=== PATIENT | female | born 2000 | race Caucasian/White ===

== ENCOUNTER 2023-07-09 09:49 | Outpatient (OUT) | payer BC, SELFPAY ==
[2023-07-09 10:04] LABS: Basophils Percent Auto 0.5 % (0.2-2.0); Eosinophils Absolute Auto 0.1 10^3/uL (0.0-0.7); Eosinophils Percent Auto 1.2 % (0.9-7.0); Hematocrit 40.7 % (36.0-48.0); Hemoglobin 13.2 g/dL (12.0-16.0); Immature Granulocytes Abs Auto 0.01 10^3/uL (0.00-0.03); Immature Granulocytes Pct Auto 0.2 % (0.0-0.5); Lymphocytes Absolute Auto 2.7 10^3/uL (1.2-3.8); Lymphocytes Percent Auto 41.5 % (20.5-60.0); Mean Corpuscular HGB Conc 32.4 g/dL (29.9-35.2); Mean Corpuscular Hemoglobin 28.8 pg (26.7-34.0); Mean Corpuscular Volume 88.7 fL (81.0-99.0); Mean Platelet Volume 10.3 fL (9.5-13.5); Monocytes Absolute Auto 0.3 10^3/uL (0.3-0.8); Monocytes Percent Auto 5.2 % (1.7-12.0); Neutrophils Absolute Auto 3.3 10^3/uL (1.4-6.5); Neutrophils Percent Auto 51.4 % (43.0-75.0); Platelet Count 284 10^3/uL (150-450); Red Blood Count 4.59 10^6/uL (4.20-5.40); White Blood Count 6.5 10^3/uL (4.0-11.0)
[2023-07-09 10:35] LABS: BUN Creatinine Ratio 12.5; Calcium 8.7 mg/dL (8.5-10.1); Carbon Dioxide 25.9 mmol/L (21.0-32.0); Chloride 103 mmol/L (98-107); Estimated GFR (African America >60 (>=60); Estimated GFR (Non-African Ame >60 (>=60); Glucose 97 mg/dL (74-106); Potassium 3.9 mmol/L (3.5-5.1); Sodium 136 mmol/L (136-145); Thyroid Stimulating Hormone 1.503 uIU/mL (0.358-3.740)
[2023-07-10 11:09] LABS: PTH, Intact 36 pg/mL (15-65)
== END 2023-07-09 09:50 | disposition home or self-care (01) ==
LOC: LAB 09:49
PROVIDERS: PCP Family Medicine; Visit Provider Family Medicine
DX: E55.9 Vitamin D deficiency, unspecified (principal); R00.0 Tachycardia, unspecified
CPT/HCPCS: 36415; 80048; 82306; 83970; 84443; 85025

== ENCOUNTER 2023-08-28 06:50 | Outpatient (OUT) | payer BC, SELFPAY ==
[2023-08-28 13:54] LABS: Estimated Average Glucose 100 mg/dL; Free T4 0.97 ng/dL (0.76-1.46); Glycohemoglobin A1C 5.1 % (4.5-6.2)
[2023-08-28 15:35] LABS: Thyroid Stimulating Hormone 2.095 uIU/mL (0.358-3.740)
== END 2023-08-28 06:51 | disposition home or self-care (01) ==
LOC: LAB 06:52
PROVIDERS: PCP Family Medicine
DX: R06.02 Shortness of breath (principal); R94.31 Abnormal electrocardiogram [ECG] [EKG]; R00.2 Palpitations; Z79.899 Other long term (current) drug therapy
CPT/HCPCS: 36415; 83036; 84439; 84443

== ENCOUNTER 2024-02-03 20:26 | Outpatient (REF) | payer BC, SELFPAY ==
[2024-02-07 19:08] LABS: Age Gdln ACOG Testing Note (.); IGP, rfx Aptima HPV ASCU Note (.)
== END 2024-02-03 20:27 | disposition home or self-care (01) ==
LOC: LAB 20:26
PROVIDERS: PCP Family Medicine; Visit Provider Obstetrics & Gynecology
DX: Z01.419 Encounter for gynecological examination (general) (routine) without abnormal findings (principal)
CPT/HCPCS: G0145

== ENCOUNTER 2024-02-18 19:55 | Outpatient (OUT) | payer BC, SELFPAY ==
--- OUTSIDE RECORDS SUMMARY | 2024-02-18 19:58 | XMS_ITS | CCD ---
Author Organization [facility] Care Team Providers Care Mental Health Consultant Name Role Phone REQUEST, DR NONE LISTED Admitting Unavaila ble REQUEST, DR GARDINER LISTED Attending Unavaila neil CAMACHO, DR SHAWNA Leyva Primary Care Unavailable REQUEST, DR GARDINER LISTED Consulting Unavaila neil MCCONNELL, DR MARIA Admitting Unavailable JENNIFER, DR MARIA Attending Unavailable CAMACHO, DR SHAWNA Leyva Primary Care Unavailable JENNIFER, DR MARIA Consulting Unavailable DOUG, DR SHAWNA Leyva Admitting Unavailable CAMACHO, DR SHAWNA Leyva Attending Unavailable DOUG, DR SHAWNA Leyva Primary Care Unavailable DOUG, DR SHAWNA Leyva Consulting Unavailable Shawna Camacho Unavailable Doug, Dr. Shawna Cruz Primary Care Unav ailable Shawna Camacho Unavailable Unavailable Unavailable Shawna Camacho MD Primary Care Provider GLADYS GONSALEZ Referring Unavailable SHAWNA CAMACHO Primary Care UnavailShawna Urban MD Primary Care Provider Unavailable GLADYS GONSALEZ Referring Unavailable SHAWNA CAMACHO Primary Care Unavaila GLADYS Fernandez Referring Unavailable SHAWNA CAMACHO Primary Care Unavaila GLADYS Fernandez Attending Unavailable SHAWNA CAMACHO Primary Care Unavaila ble Unavailable Primary Care Provider UnavailNIKOLAY Camejo Attending Unavailable Medications Current Medications Medication Drug Class(es) Dates Sig (Normalized) Sig (Original) 0.5 ML tirzepatide 5 MG/ML Auto-Injector [Mounjaro] (3 sources) Mounjaro 2.5 MG/0.5ML as directed Subcutaneous weekly for 28 days Active acebutolol 200 mg oral capsule (5 sources) beta-Adrenergic Jose Start: 10-14-2023 End: 10-13-2024 take 1 capsule by mouth twice daily acebutolol (Sectral) 200 mg capsule Indications: Elevated blood pressure reading , Palpitations , Sinus tachycardia Take 1 capsule (200 mg) by mouth 2 times a day. 180 capsule 3 10/14/2023 10/13/2024 Active Start: 08-26-2023 take 1 capsule by mo [facility] once daily Acebutolol HCl - 200 MG Oral Capsule TAKE 1 CAPSULE EVERY 12 HOURS DAILY. Quantity: 180 Refills: 1 Ordered: 26-Aug-2023 Gladys Gonsalez MD Start : 26-Aug-2023 Active [id number] 200 actuat albuterol 0.09 mg/actuat metered dose inhaler (7 sources) beta2-Adrenergic Agonist take 1 puff(s) by inhalation every four hours as needed Albuterol Sulfate HFA 108 (90 Base) MCG/ACT INHALE 1 PUFF EVERY 4 HOURS NEEDED for 30 Active take 1 puff(s) by in halation every four hours albuterol (Proventil HFA) 90 mcg/actuati on inhaler Inhale 1 puff every 4 hours if needed. 0 Active take 1 puff(s) by in halation every four hours as needed Albuterol Sulfate HFA 108 MCG/ACT AERS INHALE 1 PUFF EVERY 4 HOURS NEEDED. Quantity: 0 Refills: 0 Ordered: 26-Aug-2023 DO Active Ethinyl Estradiol / Ferrous fumarate / Norethindrone (3 sources) Estrogen Start: 08-25-2021 Lo Loestrin Fe 1 MG-10 MCG /10 MCG Lo Loestrin Fe( 1 MG-10 MCG /10 MCG Oral ) Active -Hx Entry Oral for [address] Mcconnell *Pick strength-form from [facility] for eRX* Aug, Active loestrin 1.5/30 (21) 1.5-30 mg-mcg tablet (4 sources) Estrogen take 1 tablet by mouth every twenty-four hours Loestrin 1.5/30 (21) 1.5-30 MG-MCG 1 tablet Orally Once a day Active End: 10-14-2023 take 1 tablet by mouth once daily norethindrone ac-eth estradioL (Loestrin 1.5/30, 21,) 1.5-30 mg-mcg tablet tablet Take 1 tablet by mouth once daily. As directed 0 10/14/2023 Discontinued (Therapy completed) take 1 tablet by blaze th once daily norethindrone ac-eth estradioL (Loestrin 1.5/30, 21,) 1.5-30 mg-mcg tablet tablet Take 1 tablet by mouth once daily. As directed 0 Active fluticasone (3 sources) Corticosteroid Start: 02-19-2022 Fluticasone Propionate 50MCG/ACT Fluticasone Propionate( 50MCG/ACT Nasal ) Active -Hx Entry Nasal for 0 *Pick strength-form from [facility] for eRX* Jan, Active loratadine 10 mg oral tablet (3 sources) Start: 02-19-2022 Loratadine 10M G Loratadine( 10MG Oral ) Active -Hx Entry Oral for 0 *Pick strength-form from [facility] for eRX* Jan, Active 24 hr metFORMIN hydrochloride 500 mg extended release oral tablet (10 sources) Biguanide Start: 07-29-2023 take 1 tablet by mouth once daily at mealtime metFORMIN XR (Glucophage-XR) 500 MG 24 hr tablet Indications: Weight loss TAKE 1 TABLET BY MOUTH ONCE EVERY EVENING WITH MEAL 30 tablet 5 07/29/2023 Active Start: 08-11-2021 take 1 tablet by blaze th every twenty-four hours metFORMIN HCl 500 MG 1 tablet with a meal Oral Once a day for 0 days Aug, Active omeprazole 20 mg delayed release oral capsule (8 sources) Proton Pump Inhibitor take 1 capsule by mouth once daily Omeprazole 20 MG TAKE 1 CAPSULE BY MOUTH EVERY DAY for 90 Active spironolactone 25 mg oral tablet (5 sources) Aldosterone Antagonist Start: 08-26-20 23 End: 10-13-20 24 take 1 tablet by mouth once daily spironolactone (Aldactone) 25 mg tablet Indications: Palpitations , Sinus tachycardia , Shortness of breath Take 1 tablet (25 mg) by mouth once daily. 90 tablet 3 10/14/2023 10/13/2024 Active Completed/Discontinued Medications Medication Drug Class(es) Dates Sig (Normalized) Sig (Original) Loestrin 1.5/30 (21) 1.5-30 MG-MCG Oral Tablet (1 source) take 1 tablet by blaze th once daily Loestrin 1.5/30 (21) 1.5-30 MG-MCG Oral Tablet TAKE 1 TABLET DAILY DIRECTED. 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; Translations: [Person consulting for explanation of examination or test findings] Onset: 10-14-2023 10-14-2023 Episodic Asthma (9 sources) Asthma without status asthmaticus; Translations: [Asthma, unspecified, unspecified status] Onset: 04-22-2017 Chronic Cardiac dysrhythmias (19 sources) Tachycardia, unspecified; Translations: [Palpitations] Onset: 10-01-2023 Episodic Contraceptive and procreative management (4 sources) Surveillance of oral contraception done; Translations: [Encounter for surveillance of contraceptive pills] Episodic Immunizations and screening for infectious disease (1 source) Encounter for screening for human papillomavirus (HPV); Translations: [ENC SCREENING HUMAN PAPILLOMAVIRUS] Onset: 01-01-2023 Episodic Malaise and fatigue (13 sources) Other fatigue; Translations: [Fatigue] Onset: 02-19-2022 Episodic Menstrual disorders (12 sources) Secondary amenorrhea; Translations: [Secondary amenorrhea] Onset: 09-03-2016 Chronic Nutritional deficiencies (5 sources) Vitamin D deficiency; Translations: [Vitamin D deficiency, unspecified] Chronic Other aftercare (4 sources) Long-term current use of drug therapy; Translations: [Other long term care pharmacist (current) drug therapy] Episodic Other aftercare (4 sources) Long-term current use of hormonal contraceptive; Translations: [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] Episodic Other aftercare (1 source) Treatment changed; Translations: [Long-term (current) use of other medications] Episodic Other circulatory disease (5 sources) Elevated blood pressure; Translations: [Elevated blood pressure reading without diagnosis of hypertension] Onset: 10-01-2023 10-01-2023 Episodic Other circulatory disease (2 sources) Elevated blood-pressure reading, without diagnosis of hypertension; Translations: [Elevated blood-pressure reading, without diagnosis of hypertension] Onset: 10-01-2023 Episodic Other endocrine disorders (4 sources) Disorder of endocrine system; Translations: [Endocrine disorder, unspecified] Episodic Other lower respiratory disease (9 sources) Dyspnea; Translations: [Shortness of breath] Onset: 10-01-2023 10-02-2023 Episodic Other lower respiratory disease (2 sources) Shortness of breath; Translations: [Shortness of breath] Onset: 10-01-2023 Episodic Other non-traumatic joint disorders (4 sources) Arthralgia of the lower leg; Translations: [Pain in joint, lower leg] Episodic Other nutritional; endocrine; and metabolic disorders (12 sources) Obese class II; Translations: [Body mass index 35.0-35.9, adult] Onset: 07-10-2018 Chronic Other nutritional; endocrine; and metabolic disorders (4 sources) Obesity caused by energy imbalance; Translations: [Other obesity due to excess calories] Chronic Other nutritional; endocrine; and metabolic disorders (4 sources) Obesity; Translations: [Obesity, unspecified] Chronic Other nutritional; endocrine; and metabolic disorders (4 sources) Body mass index 30+ - obesity; Translations: [Body mass index (BMI) 39.0-39.9, adult] Chronic Other nutritional; endocrine; and metabolic disorders (1 source) Other obesity due to excess calories Chronic Other nutritional; endocrine; and metabolic disorders (1 source) Body mass index (BMI) 39.0-39.9, adult Chronic Other nutritional; endocrine; and metabolic disorders (5 sources) Body mass index 40+ - severely obese; Translations: [Morbid obesity] Onset: 10-01-2023 10-01-2023 Chronic Other nutritional; endocrine; and metabolic disorders (2 sources) Morbid (severe) obesity due to excess calories; Translations: [Morbid (severe) obesity due to excess calories (CMS/HCC)] Onset: 10-01-2023 Chronic Other nutritional; endocrine; and metabolic disorders (2 sources) Body mass index (BMI) 40.0-44.9, adult; Translations: [Body mass index (BMI) 40.0-44.9, adult (CMS/HCC)] Onset: 10-01-2023 Chronic Other nutritional; endocrine; and metabolic disorders (4 sources) Abnormal weight gain; Translations: [Abnormal weight gain] Episodic Other screening for suspected conditions (not mental disorders or infectious disease) (16 sources) Encounter for screening for malignant neoplasm of cervix; Translations: [Electrocardiogram abnormal] Onset: 12-31-2022 Episodic Other upper respiratory infections (12 sources) Acute maxillary sinusitis; Translations: [Acute recurrent maxillary sinusitis] Onset: 12-06-2014 Episodic Otitis media and related conditions (8 sources) Non-suppurative otitis media; Translations: [Unspecified nonsuppurative otitis media, bilateral] Onset: 12-05-2018 Episodic Residual codes; unclassified (1 source) Sleep apnea; Translations: [Sleep apnea, unspecified] 10-14-2023 Chronic Residual codes; unclassified (2 sources) Sleep apnea, unspecified; Translations: [Sleep apnea, unspecified] Onset: 10-14-2023 Chronic Residual codes; unclassified (1 source) Obstructive sleep apnea syndrome; Translations: [Obstructive sleep apnea (adult) (pediatric)] Chronic Residual codes; unclassified (1 source) Obstructive sleep apnea (adult) (pediatric) Chronic Residual codes; unclassified (4 sources) Other specified health status; Translations: [Health status] Episodic Unclassified (1 source) Unknown / UNK(Unknown) Onset: 08-08-2017 Past or Other Problems Problem Classification Problem Date Documented Da te Episodic/Chronic Fracture of upper limb (4 sources) Closed fracture of one or more phalanges of hand; Translations: [Closed fracture of unspecified phalanx or phalanges of hand] Onset: 12-23-2013 Episodic Headache, including migraine (1 source) Headache, including migraine Onset: 08-08-2017 Nausea and vomiting (4 sources) Nausea; Translations: [Nausea] Resolved: 08-11-2021 Episodic Other connective tissue disease (4 sources) Pain in finger; Translations: [Pain in unspecified finger(s)] Onset: 12-18-2013 Resolved: 08-11-2021 Episodic Other injuries and conditions due to external causes (4 sources) Motion sickness; Translations: [Motion sickness, initial encounter] Onset: 04-08-2019 Episodic Other non-traumatic joint disorders (4 sources) Shoulder joint pain; Translations: [Pain in right shoulder] Onset: 09-27-2015 Episodic Other skin disorders (4 sources) Disorder of skin and/or subcutaneous tissue; Translations: [Disorder of the skin and subcutaneous tissue, unspecified] Onset: 12-06-2017 Episodic Skin and subcutaneous tissue infections (8 sources) Cellulitis and abscess of upper arm; Translations: [Cellulitis and abscess of upper arm and forearm] Onset: 05-15-2018 Resolved: 08-11-2021 Episodic Unclassified (1 source) Never smoked tobacco; Translations: [Never a smoker] Unclassified (1 source) Patient status finding; Translations: [Patient new to provider] Results Test Name Value Interpretation Reference Range Facility Heart TransthoracicOrdere d By: Phong Walker on 10-03-2023 LV A4C EF 68.5 [facility] Work Phone: [facility] Work Phone: [facility] [address], [place] [address] TRANSTHORACIC ECHOCARDIOGRAM REPORT Patient Name: FER NEELY Reading Physician: [id number] Phong Walker MD Study Date: 10/02/2023 Ordering Provider: [id number] GLADYS GONSALEZ MRN/PID: [id number] Fellow: Nurse: Date of /Age: 10 2000 / 23 years [employer] Hand: Martita Gould RDCS, RVT Gender: F Additional Staff: Height: 167.64 cm Admit Date: Weight: 118.39 kg Admission Status: BSA: 2.24 m2 Department Location: [facility] Blood Pressure: 168 /96 mmHg Study Type: TRANSTHORACIC ECHO (TTE) COMPLETE Diagnosis/ICD: Palpitations-R00.2; Shortness of breath-R06.02; Abnormal electrocardiogram [ECG] [EKG]-R94.31 Indication: Sinus Tachycardia, Morbid Obesity, Elevated BP Reading CPT Codes: Echo Complete w Full [id number] Study Detail: The following Echo studies were performed: 2D, M-Mode, Doppler and color flow. PHYSICIAN INTERPRETATION: Left Ventricle: Left ventricular systolic function is normal, with an estimated ejection fraction of 65%. There are no regional wall motion abnormalities. The left ventricular cavity size is normal. Spectral Doppler shows a normal pattern of left ventricular diastolic filling. Left Atrium: The left atrium is normal in size. Right Ventricle: The right ventricle is normal in size. There is normal right ventricular global systolic function. Right Atrium: The right atrium is normal in size. Aortic Valve: The aortic valve is trileaflet. There is no evidence of aortic valve regurgitation. The peak instantaneous gradient of the aortic valve is 10.9 mmHg. The mean gradient of the aortic valve is 6.0 mmHg. Mitral Valve: The mitral valve is normal in structure. There is no evidence of mitral valve regurgitation. Tricuspid Valve: The tricuspid valve is structurally normal. No evidence of tricuspid regurgitation. Pulmonic Valve: The pulmonic valve is not well visualized. There is no indication of pulmonic valve regurgitation. Pericardium: There is no pericardial effusion noted. Aorta: The aortic root is normal. CONCLUSIONS: 1. Left ventricular systolic function is normal with a 65% estimated ejection fraction. QUANTITATIVE DATA SUMMARY: 2D MEASUREMENTS: Normal Ranges: Ao Root d: 2.30 cm (2.0-3.7cm) LAs: 3.10 cm (2.7-4.0cm) RVIDd: 2.60 cm (0.9-3.6cm) IVSd: 0.90 cm (0.6-1.1cm) LVPWd: 0.80 cm (0.6-1.1cm) LVIDd: 4.30 cm (3.9-5.9cm) LVIDs: 2.70 cm LV Mass Index: 51.0 g/m2 LV % FS 37.2 % LV SYSTOLIC FUNCTION BY 2D PLANIMETRY (MOD): Normal Ranges: EF-A4C View: 68.5 % (>=55%) LV DIASTOLIC FUNCTION: Normal Ranges: MV Peak E: 1.03 m/s (0.7-1.2 m/s) MV Peak A: 0.49 m/s (0.42-0.7 m/s) E/A Ratio: 2.09 (1.0-2.2) MV lateral e' 0.14 m/s MV medial e' 0.11 m/s E/e' Ratio: 7.30 (<8.0) MITRAL VALVE: Normal Ranges: MV Vmax: 1.22 m/s (<=1.3m/s) MV peak P.0 mmHg (<5mmHg) MV mean P.0 mmHg (<48mmHg) AORTIC VALVE: Normal Ranges: AoV Vmax: 1.65 m/s (<=1.7m/s) AoV Peak P.9 mmHg (<20mmHg) AoV Mean P.0 mmHg (1.7-11.5mmHg) LVOT Max Kyle: 0.92 m/s (<=1.1m/s) AoV VTI: 33.90 cm (18-25cm) LVOT VTI: 17.90 cm LVOT Diameter: 2.10 cm (1.8-2.4cm) AoV Area, VTI: 1.83 cm2 (2.5-5.5cm2) AoV Area,Vmax: 1.94 cm2 (2.5-4.5cm2) AoV Dimensionless Index: 0.53 PULMONIC VALVE: Normal Ranges: PV Max Kyle: 1.0 m/s (0.6-0.9m/s) PV Max P.4 mmHg [id number] Walker MD Electronically signed on 10/03/2023 at 9:00:56 AM Final SYNGO Phong Walker MD - 10/03/[address], [address] [place] [address] TRANSTHORACIC ECHOCARDIOGRAM REPORT Patient Name: FER Grover Physician: [id number] Walker MD Study Date: 10/02/2023 Ordering Provider: [id number] GLADYS GONSALEZ MRN/PID: [id number] Fellow: Nurse: Date of /Age: 10 2000 / 23 years [employer] Hand: Martita Gould RDCS, RVT Gender: F Additional Staff: Height: 167.64 cm Admit Date: Weight: 118.39 kg Admission Status: BSA: 2.24 m2 Department Location: [facility] Blood Pressure: 168 /96 mmHg Study Type: TRANSTHORACIC ECHO (TTE) COMPLETE Diagnosis/ICD: Palpitations-R00.2; Shortness of breath-R06.02; Abnormal electrocardiogram [ECG] [EKG]-R94.31 Indication: Sinus Tachycardia, Morbid Obesity, Elevated BP Reading CPT Codes: Echo Complete w Full [id number] Study Detail: The following Echo studies were performed: 2D, M-Mode, Doppler and color flow. PHYSICIAN INTERPRETATION: Left Ventricle: Left ventricular systolic function is normal, with an estimated ejection fraction of 65%. There are no regional wall motion abnormalities. The left ventricular cavity size is normal. Spectral Doppler shows a normal pattern of left ventricular diastolic filling. Left Atrium: The left atrium is normal in size. Right Ventricle: The right ventricle is normal in size. There is normal right ventricular global systolic function. Right Atrium: The right atrium is normal in size. Aortic Valve: The aortic valve is trileaflet. There is no evidence of aortic valve regurgitation. The peak instantaneous gradient of the aortic valve is 10.9 mmHg. The mean gradient of the aortic valve is 6.0 mmHg. Mitral Valve: The mitral valve is normal in structure. There is no evidence of mitral valve regurgitation. Tricuspid Valve: The tricuspid valve is structurally normal. No evidence of tricuspid regurgitation. Pulmonic Valve: The pulmonic valve is not well visualized. There is no indication of pulmonic valve regurgitation. Pericardium: There is no pericardial effusion noted. Aorta: The aortic root is normal. CONCLUSIONS: 1. Left ventricular systolic function is normal with a 65% estimated ejection fraction. QUANTITATIVE DATA SUMMARY: 2D MEASUREMENTS: Normal Ranges: Ao Root d: 2.30 cm (2.0-3.7cm) LAs: 3.10 cm (2.7-4.0cm) RVIDd: 2.60 cm (0.9-3.6cm) IVSd: 0.90 cm (0.6-1.1cm) LVPWd: 0.80 cm (0.6-1.1cm) LVIDd: 4.30 cm (3.9-5.9cm) LVIDs: 2.70 cm LV Mass Index: 51.0 g/m2 LV % FS 37.2 % LV SYSTOLIC FUNCTION BY 2D PLANIMETRY (MOD): Normal Ranges: EF-A4C View: 68.5 % (>=55%) LV DIASTOLIC FUNCTION: Normal Ranges: MV Peak E: 1.03 m/s (0.7-1.2 m/s) MV Peak A: 0.49 m/s (0.42-0.7 m/s) E/A Ratio: 2.09 (1.0-2.2) MV lateral e' 0.14 m/s MV medial e' 0.11 m/s E/e' Ratio: 7.30 (<8.0) MITRAL VALVE: Normal Ranges: MV Vmax: 1.22 m/s (<=1.3m/s) MV peak P.0 mmHg (<5mmHg) MV mean P.0 mmHg (<48mmHg) AORTIC VALVE: Normal Ranges: AoV Vmax: 1.65 m/s (<=1.7m/s) AoV Peak P.9 mmHg (<20mmHg) AoV Mean P.0 mmHg (1.7-11.5mmHg) LVOT Max Kyle: 0.92 m/s (<=1.1m/s) AoV VTI: 33.90 cm (18-25cm) LVOT VTI: 17.90 cm LVOT Diameter: 2.10 cm (1.8-2.4cm) AoV Area, VTI: 1.83 cm2 (2.5-5.5cm2) AoV Area,Vmax: 1.94 cm2 (2.5-4.5cm2) AoV Dimensionless Index: 0.53 PULMONIC VALVE: Normal Ranges: PV Max Kyle: 1.0 m/s (0.6-0.9m/s) PV Max P.4 mmHg [id number] Walker MD Electronically signed on 10/03/2023 at 9:00:56 AM Final [facility] Work Phone: TRANSTHORACIC ECHO (TTE) COM PLETEon 10-02-2023 TRANSTHORACIC ECHO (TTE) COMPLETE [address], [address] [place] [address] TRANSTHORACIC ECHOCARDIOGRAM REPORT Patient Name: FER Grover Physician: [id number] Walker MD Study Date: 10/02/2023 Ordering Provider: [id number] GLADYS GONSALEZ MRN/PID: [id number] Fellow: Nurse: Date of /Age: 10 2000 / 23 years [employer] Hand: Martita Gould RDCS, RVT Gender: F Additional Staff: Height: 167.64 cm Admit Date: Weight: 118.39 kg Admission Status: BSA: 2.24 m2 Department Location: [facility] Blood Pressure: 168 /96 mmHg Study Type: TRANSTHORACIC ECHO (TTE) COMPLETE Diagnosis/ICD: Palpitations-R00.2; Shortness of breath-R06.02; Abnormal electrocardiogram [ECG] [EKG]-R94.31 Indication: Sinus Tachycardia, Morbid Obesity, Elevated BP Reading CPT Codes: Echo Complete w Full Doppler-[id number] Study Detail: The following Echo studies were performed: 2D, M-Mode, Doppler and color flow. PHYSICIAN INTERPRETATION: Left Ventricle: Left ventricular systolic function is normal, with an estimated ejection fraction of 65%. There are no regional wall motion abnormalities. The left ventricular cavity size is normal. Spectral Doppler shows a normal pattern of left ventricular diastolic filling. Left Atrium: The left atrium is normal in size. Right Ventricle: The right ventricle is normal in size. There is normal right ventricular global systolic function. Right Atrium: The right atrium is normal in size. Aortic Valve: The aortic valve is trileaflet. There is no evidence of aortic valve regurgitation. The peak instantaneous gradient of the aortic valve is 10.9 mmHg. The mean gradient of the aortic valve is 6.0 mmHg. Mitral Valve: The mitral valve is normal in structure. There is no evidence of mitral valve regurgitation. Tricuspid Valve: The tricuspid valve is structurally normal. No evidence of tricuspid regurgitation. Pulmonic Valve: The pulmonic valve is not well visualized. There is no indication of pulmonic valve regurgitation. Pericardium: There is no pericardial effusion noted. Aorta: The aortic root is normal. CONCLUSIONS: 1. Left ventricular systolic function is normal with a 65% estimated ejection fraction. QUANTITATIVE DATA SUMMARY: 2D MEASUREMENTS: Normal Ranges: Ao Root d: 2.30 cm (2.0-3.7cm) LAs: 3.10 cm (2.7-4.0cm) RVIDd: 2.60 cm (0.9-3.6cm) IVSd: 0.90 cm (0.6-1.1cm) LVPWd: 0.80 cm (0.6-1.1cm) LVIDd: 4.30 cm (3.9-5.9cm) LVIDs: 2.70 cm LV Mass Index: 51.0 g/m2 LV % FS 37.2 % LV SYSTOLIC FUNCTION BY 2D PLANIMETRY (MOD): Normal Ranges: EF-A4C View: 68.5 % (>=55%) LV DIASTOLIC FUNCTION: Normal Ranges: MV Peak E: 1.03 m/s (0.7-1.2 m/s) MV Peak A: 0.49 m/s (0.42-0.7 m/s) E/A Ratio: 2.09 (1.0-2.2) MV lateral e' 0.14 m/s MV medial e' 0.11 m/s E/e' Ratio: 7.30 (<8.0) MITRAL VALVE: Normal Ranges: MV Vmax: 1.22 m/s (<=1.3m/s) MV peak P.0 mmHg (<5mmHg) MV mean P.0 mmHg (<48mmHg) AORTIC VALVE: Normal Ranges: AoV Vmax: 1.65 m/s (<=1.7m/s) AoV Peak P.9 mmHg (<20mmHg) AoV Mean P.0 mmHg (1.7-11.5mmHg) LVOT Max Kyle: 0.92 m/s (<=1.1m/s) AoV VTI: 33.90 cm (18-25cm) LVOT VTI: 17.90 cm LVOT Diameter: 2.10 cm (1.8-2.4cm) AoV Area, VTI: 1.83 cm2 (2.5-5.5cm2) AoV Area,Vmax: 1.94 cm2 (2.5-4.5cm2) AoV Dimensionless Index: 0.53 PULMONIC VALVE: Normal Ranges: PV Max Kyle: 1.0 m/s (0.6-0.9m/s) PV Max P.4 mmHg [id number] Phong Walker MD Electronically signed on 10/03/2023 at 9:00:56 AM Final [facility] Tobacco Screening.on 023 Adult depression screening assessment No [facility] [employer] DO Work Phone: Fall risk assessment a) No falls within the last year [facility] [employer] 250 DO Work Phone: Tobacco use status [facility] b) No -[facility] greer 250 DO Work Phone: PAP ACOG PANEL 2: 21 to 29on 01-05-2023 . . Normal [facility] Comment on above: Performed By: #### [id number] #### [facility] [address] [place] [address] Dr. Andrews Zepeda Age Gdln ACOG Testing - Normal [facility] Comment on above: Performed By: #### [id number] #### [facility] [address] [place] [address] [address] Andrews Zepeda DIAGNOSIS: Comment [facility] Comment on above: Result Comment: NEGA TIVE FOR INTRAEPITHELIAL LESION OR MALIGNANCY. Performed By: #### [id number] #### [facility] [address] [place] [address] Dr. Andrews Zepeda Methodology: Comment [facility] Comment on above: Result Comment: This liquid based ThinPrep(R) pap test was screened with the use of an image guided system. Performed By: #### [id number] #### [facility] [address] [place] [address] Dr. Andrews Zepeda Note: Comment [facility] [facility] Comment on above: Result Comment: The Pap smear is a screening test designed to aid in the detection of premalignant and malignant conditions of the uterine cervix. It is not a diagnostic procedure and should not be used as the sole means of detecting cervical cancer. Both false-positive and false-negative reports do occur. . Performed By: #### [id number] #### [facility] [address] [place] [address] Dr. Andrews Zepeda Performed by: Comment [facility] Comment on above: Result Comment: Waylon Raza, Operations Director (ASCP) Performed By: #### [id number] #### [facility] [address] [place] [address] Dr.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 JLSCElimination/Toileting NPain 4Position Comfortable YSafe Environment YFall Risk Change N008/08/2017 18:32 Patient Interaction - Call lightplaced within reach. 08/08/2017 18:33 JLSC08/08/2017 18:32 Patient Interaction - Introduce selfto Patient. 08/08/2017 18:33 JLSC08/08/2017 18:32 Patient Interaction - Name Band on Pt08/08/2017 18:33 JLSC08/08/2017 18:32 Primary DOC Guide - A. 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 [facility] MEDICAL REC #: [id number], [place] [address] DEPARTMENT CHART EMERGENCY DEPARTMENT PHYSICIANTravel History - Traveled outside of the [facility] in thelast 30 days NoTravel History - Had contact with a person who hastraveled outside the state in the last 30 days No08/08/2017 18:32 Primary DOC Guide - B. Fall RiskAssessment (Age andlt;65) 08/08/2017 18:33 JLSCHistory of Falling in last 3 months? Yes (1)Confusion or Disorientation? No (0)Intoxicated or Sedated? No (0)Impaired Gait? No (0)Mobility Assist Device Used? No (0)Altered Elimination? No (0)Fall Risk Score 1-2 Points = Low Risk. 3-4 Points =Moderate Risk. 5 or more points = High Risk. 1Fall Score Greater andgt;= 3? No08/08/2017 18:33 Primary DOC Guide - D. PsychosocialAssessment 08/08/2017 18:33 JLSCOver the Last 2 weeks, how often have you had littleinterest or pleasure in doing things (0) Not at AllIs Psychosocial Assessment Score 3 or more? If score is3 or more please consult ED Navigator! NoTotal Psychosocial Assessment Score 0Over the last 2 weeks, how often have you been feelingdown, depressed or hopeless (0) Not at All08/08/2017 18:33 Primary DOC Guide - E. Family ViolenceAssessment 08/08/2017 18:33 JLSCWithin the past year, has anyone ever pushed, shoved,slapped, choked, hit, punched or kicked you: NoWithin the past year, has anyone ever pressured orforced you to have sexual activities when you did not wantto: NoDo you feel safe and well cared for: YesIs there a partner from a previous or currentrelationship that is making you feel unsafe now: No08/08/2017 19:51 Hourly Rounding - Rounding 08/08/201719:51 CNHElimination/Toileting NPain 5Position Comfortable YSafe Environment YAssessment Note pt resting in bed with family atbedside, bed in low and locked position, denies needs [facility] PATIENT NAME: FER NEELY E[address] [facility] [address] MEDICAL REC #: [id number], [place] [address] DEPARTMENT CHART EMERGENCY DEPARTMENT VYHYGWBLU24/07/2017 20:28 Admit/Discharge - *Dischargeinstructions/te sts andamp; procedures/med list reviewed andprovided; prescriptions given to patient 08/08/2017 20:49AGQ0608/08/2017 20:28 Admit/Discharge - Ambulated withsteady gait home 08/08/2017 20:29 [facility] ME DICATIONS I V I AND O VITALS=== VS-ROUTI NE Time: 08/08/2017 17:13B/P: 144/67 - Right Upper Arm - Sitting - MachinePulse: 104 - Monitor Resp: 18Sa02: 99 Room Air Temp: 98.60 F - Oral08/08/2017 17:14 AGVS-Pain Time: 08/08/2017 17:13 Pain Level: 6008/08/2017 17:14 AGVS-GCS Time: 08/08/2017 17:13 Visual: 4 Verbal: 5 Motor:6 GCS Total: 15 08/08/2017 17:14 AGVS-HT/WT Time: 08/08/2017 17:13 Ht: 66 in. ActualWeight: 225 lbs Actual 08/08/2017 17:14 AGVS-Visual Time: 08/08/2017 17:13 08/08/2017 17:14 AGVS-FHT Time: 08/08/2017 17:13 08/08/2017 17:14AGVS-Notes Time: 08/08/2017 17:13 map 97 08/08/201717:14 AGVS-ROUTINE Time: 08/08/2017 19:50B/P: 137/63 - Right Upper Arm - Sitting - MachinePulse: 101 - Monitor Resp: 16Sa02: 100 Room Air 08/08/2017 19:51 CNHVS-Pain Time: 08/08/2017 19:50 Pain Level: 19:51 CNHVS-GCS Time: 08/08/2017 19:50 Visual: 4 Verbal: 5 Motor: [facility] PATIENT NAME: FER NEELY [id number] [facility] [address] [facility] MEDICAL REC #: [id number], [place] [address] DEPARTMENT CHART EMERGENCY DEPARTMENT PHYSICIAN6 GCS Total: 15 08/08/2017 19:51 CNHVS-HT/WT Time: 08/08/2017 19:50 08/08/2017 19:51 CNHVS-Visual Time: 08/08/2017 19:50 08/08/2017 19:51 CNHVS-FHT Time: 08/08/2017 19:50 08/08/2017 19:51CNHVS-Notes Time: 08/08/2017 19:50 map 91 08/08/201719:51 [facility] OR DERS D ischarge patient 08/08/2017 20:15N/AOrdered: 08/08/2017 19:41 By . OtherReviewed: 08/08/2017 20:15 By . OtherCT head/brain w/o con 08/08/2017 19:16N/AOrdered: 08/08/2017 18:16 By Raheem LockCompleted Time: 08/08/2017 19:16 By Raheem LockIndication: head injuryNoted Time: 08/08/2017 19:13Question: Are you or think you might be ?Answer: NO DIS CHARGE =Diagnosis: acute postconcussive syndrome 08/08/201719:42Dispositio n: Time: 08/08/2017 19:41Discharge Time: 08/08/2017 20:29Type: DischargeCondition: Stable for admission/discharge/trans ferafter emergency evaluation/treatment Category: *NOTAPPLICABLEReferral: 08/08/2017 19:42Admit Physician: . Other PRESCRIPTIONS ===CHARGES ===== [facility] PATIENT NAME: TODDNargisFER [address]ie MEDICAL REC #: [id number], [place] [address] DEPARTMENT CHART EMERGENCY DEPARTMENT PHYSICIAN ====SIGNATURE ========BENJIE CRAWFORDHOTTO CANNON RN [facility] PATIENT NAME: SANDIEFER Dr. MEDICAL REC #: [id number], [place] [address] DEPARTMENT CHART EMERGENCY DEPARTMENT PHYSICIAN [facility] ED Documentation This is a preliminar y report only, as the practitioner review and authentication has not occurred. [facility] Vital Signs Date Time Vital Sign Value Performing Clinician Facility 01-02-2024 15:45-0500 Body height 168.91 cm Shawna Camacho Other [facility] Other 01-02-2024 15:45-0500 Body mass index (BMI) [Ratio] 38.76 kg/m2 Shawna Camacho Other [facility] Other 01-02-2024 15:45-0500 Body weight 110.59 kg Shawna Camacho Other [facility] Other 01-02-2024 15:45-0500 Diastolic blood pressure 78 mm[Hg] Shawna Camacho Other [facility] Other 01-02-2024 15:45-0500 Systolic blood pressure 110 mm[Hg] Shawna Camacho Other [facility] Other 10-14-2023 15:08-0500 Body height 167.6 cm Gladys Gonsalez MD Work Phone: [facility] 10-14-2023 15:08-0500 Body mass index (BMI) [Ratio] 42.29 kg/m2 Gladys Gonsalez MD Work Phone: [facility] 10-14-2023 15:08-0500 Body weight 118.84 kg Gladys Gonsalez MD Work Phone: [facility] 10-14-2023 15:08-0500 Diastolic blood pressure 78 mm[Hg] Gladys Gonsalez MD Work Phone: [facility] 10-14-2023 15:08-0500 Heart rate 94 /min Gladys Gonsalez MD Work Phone: [facility] 10-14-2023 15:08-0500 Systolic blood pressure 130 mm[Hg] Gladys Gonsalez MD Work Phone: [facility] 10-02-2023 07:42-0400 Body height 167.[address] 10-02-2023 07:42-0400 Body mass index (BMI) [Ratio] 42.13 kg/m2 [address] 10-02-2023 07:42-0400 Body weight 118.[address] 10-02-2023 07:42-0400 Diastolic blood pressure 96 mm[Hg] [address] 10-02-2023 07:42-0400 Systolic blood pressure 168 mm[Hg] [address] 08-26-2023 16:17-0400 Diastolic blood pressure 88 mm[Hg] Shawna Camacho Work Phone: [facility] DO Work Phone: 08-26-2023 16:17-0400 Systolic blood pressure 166 mm[Hg] Shawna Camacho Work Phone: [facility] DO Work Phone: 08-26-2023 15:34-0400 Diastolic blood pressure 100 mm[Hg] Shawna Camacho Work Phone: [facility] DO Work Phone: 08-26-2023 15:34-0400 Heart rate 120 /min Shawna Camacho Work Phone: [facility] DO Work Phone: 08-26-2023 15:34-0400 Systolic blood pressure 172 mm[Hg] Shawna Camacho Work Phone: [facility] DO Work Phone: 08-26-2023 15:29-0400 Body height 167.64 cm Shawna Camacho Work Phone: [facility] DO Work Phone: 08-26-2023 15:29-0400 Body mass index (BMI) [Ratio] 42.13 kg/m2 Shawna Camacho Work Phone: [facility] DO Work Phone: 08-26-2023 15:29-0400 Body surface area Derived from formula 2.24 m2 Shawna Camacho Work Phone: [facility] DO Work Phone: 08-26-2023 15:29-0400 Body weight 118.39 kg Shawna Camacho Work Phone: [facility] DO Work Phone: 08-26-2023 15:29-0400 Diastolic blood pressure 94 mm[Hg] Shawna Camacho Work Phone: [facility] DO Work Phone: 08-26-2023 15:29-0400 Heart rate 120 /min Shawna Camacho Work Phone: [facility] DO Work Phone: 08-26-2023 15:29-0400 Systolic blood pressure 160 mm[Hg] Shawna Camacho Work Phone: [facility] DO Work Phone: 07-09-2023 08:45-0400 Body height 168.91 cm Shawna Camacho Other [facility] Other 07-09-2023 08:45-0400 Body mass index (BMI) [Ratio] 39.11 kg/m2 Shawna Camacho Other [facility] Other 07-09-2023 08:45-0400 Body weight 111.59 kg Shawna Doug Other [facility] Other 07-09-2023 08:45-0400 Diastolic blood pressure 82 mm[Hg] Shawna Doug Other [facility] Other 07-09-2023 08:45-0400 SaO2% (BldA) [Mass fraction] 98 % Shawna Doug Other [facility] Other 07-09-2023 08:45-0400 Systolic blood pressure 134 mm[Hg] Shawna Camacho Other [facility] Other Encounters Encounter Date Encounter Type Care Provider Facility Start: 02-03-2024 End: 02-03-2024 ambulatory NIKOLAY MCCONNELL Not Available Start: 01-13-2024 Chart abstracting Nikolay Mcconnell DO Work Phone: [facility] Start: 01-02-2024 End: 01-02-2024 ambulatory Shawna Camacho Other [facility] Other Start: 01-02-2024 Office outpatient vi sit 15 minutes Shawna Camacho [facility] Start: 11-07-2023 End: 11-07-2023 ambulatory Shawna Camacho Other [facility] Other Start: 11-07-2023 Telephone encounter Shawna Camacho [facility] Start: 10-14-2023 End: 10-14-2023 ambulatory [facility] Ambulatory Start: 10-14-2023 End: 10-14-2023 Office outpatient visit 15 minutes Gladys Gonsalez MD Work Phone: [facility] Comment on above: Palpitations (Primar y Dx); Encounter to discuss test results; Abnormal EKG; Elevated blood pressure reading; Sinus tachycardia; Morbid obesity with BMI of 40.0-44.9, adult (CMS/HCC); Shortness of breath; Tiredness; Sleep apnea, unspecified type Start: 10-02-2023 End: 10-02-2023 ambulatory [facility] Ambulatory Start: 10-02-2023 End: 10-03-2023 ambulatory [facility] Start: 10-02-2023 End: 10-02-2023 Subsequent hospital visit by physician Jessica Capone Echo/Vasc Room 2 [facility] Comment on above: Palpitations; Shortness of breath; Abnormal EKG Start: 08-26-2023 Office consultation new/estab patient 60 min Shawna Camacho Work Phone: [facility] DO Work Phone: Start: 07-10-[address] Shawna Camacho Facility:[facility] Start: 07-09-2023 End: 07-09-2023 ambulatory Shawna Camacho Other [facility] Other Start: 07-09-2023 Office outpatient vi sit 25 minutes Shawna Camacho [facility] Start: 07-09-2023 Telephone encounter Shawna Camacho [facility] Start: 12-31-2022 End: 12-31-[address] NIKOLAY MCCONNELL Facility: Start: 12-06-2022 End: 12-07-[address] GARDINER LISTED REQUEST Facility: Start: 02-19-2022 End: 02-20-[address] SHAWNA CAMACHO Facility: Start: 02-19-2022 Gynecological examination normal Shawna Camacho Other [facility] Other Start: 02-19-2022 Well child visit Shawna Camacho Other [facility] Other Start: 08-08-2017 Emergency department patient visit Facility:[facility] Procedures Date Procedure Procedure Detail Performing Clinician Start: 10-14-2023 HOME SLEEP APNEA DAVIS T (HSAT) GLADYS GONSALEZ Start: 10-02-2023 HOLTER OR EVENT CARD IAC MONITOR GLADYS GONSALEZ Start: 10-02-2023 TRANSTHORACIC ECHO ( TTE) COMPLETE GLADYS GONSALEZ Start: 10-02-2023 Echo tthrc r-t 2d w/wom-mode compl spec&colr d Gladys Gonsalez MD Work Phone: Start: 04-02-2019 General examination of patient Shawna Camacho Other Extraction of wisdom tooth Shawna Camacho Work Phone: Operative procedure on foot Shawna Camacho Work Phone: NEGATED: Highlighted row has not occurred! Total colonoscopy Shawna Camacho Work Phone: Plan of Treatment Date Care Activity Detail Author Start: 2048 Zoster Vaccines (1 of 2) Zoste r Vaccines (1 of 2) [facility] Start: 03-05-2029 DTaP/Tdap/Td Vaccine s (8 - Td or Tdap) DTaP/Tdap/Td Vaccines (8 - Td or Tdap) [facility] Start: 04-13-2024 End: 04-13-2024 Patient encounter procedure 04/13/2024 3:30 PM EDT Office Visit [address] [id number] Gladys Gonsalez MD [address] [place] [address] [address] [place], [place] [id number] [facility] Start: 02-03-2024 End: 02-03-2024 Patient encounter procedure 02/03/2024 4:00 PM EST Office Visit [facility] [address] [place] [address] Nikolay Mcconnell, [address] [place]ilar, [place] [id number] [facility] Start: 10-14-2023 End: 10-14-2023 Patient encounter procedure 10/14/2023 3:00 PM EST Office Visit [address] [address] Gladys Gonsalez MD [address] [place] [address] [address] [place] [address] [facility] Start: 01-04-2023 COVID-19 Vaccine (4 - Moderna series) COVID-19 Vaccine (4 - Moderna series) [facility] Start: 02-17-2022 HPV Vaccines (3 - 3- dose series) HPV Vaccines (3 - 3-dose series) [facility] Start: 2019 Screening for malign ant neoplasm of cervix [facility] Start: 2016 Diabetes mellitus screening Diabetes Screening [facility] Start: 2016 Hepatitis C screening Hepatitis C Sc reening [facility] Start: 11-08-2009 Varicella vaccination Varicell a Vaccines (1 of 2 - 2-dose childhood series) [facility] Start: 1998 HIV screening HIV Screening [facility] Start: 1998 Lipid panel Lipid Panel [facility] Start: 1998 Yearly Adult Physical Yearly Adult P [facility] Home sleep apnea davis t (HSAT) Home sleep apnea test (HSAT) Sleep Center Routine Shortness of breath Tiredness Sleep apnea, unspecified type Ordered: 10/14/2023 [facility] Service Area Work Phone: Comment on above: Ordered: 10/14/2023 End: 10-02-2023 US Heart Transthoracic [facility] Service Area Work Phone: Comment on above: Once for 1 Occurrenc es starting 10/02/2023 until 10/02/2023 Immunizations Immunization Date Immunization Notes Care Provider Fa chaparrita 09-02-2023 influenza, injectabl e, quadrivalent, preservative free Jessica 2 [facility] Work Phone: 11-09-2022 Pfizer COVID-19 Vac Bivalent 30 MCG/0.3ML Intramuscular Suspension Shawna Camacho Work Phone: [facility] DO Work Phone: 09-19-2022 Influenza, injectabl e, Madin Misti Canine Kidney, preservative free, quadrivalent Shawna E Camacho Work Phone: [facility] 250 DO Work Phone: 10-06-2021 Human Papillomavirus 9-valent vaccine Shawna E Camacho Work Phone: [facility] 250 DO Work Phone: 10-06-2021 HPV, unspecified formulation [address] Work Phone: 09-29-2021 Moderna COVID-19 Vac cine 100 MCG/0.5ML Intramuscular Suspension Shawna E Camacho Work Phone: [facility] 250 DO Work Phone: 08-20-2021 Human Papillomavirus 9-valent vaccine Shawna E Camacho Work Phone: [place] [address] DO Work Phone: 08-20-2021 influenza, injectabl e, quadrivalent, preservative free Shawna E Camacho Work Phone: [place] [address] DO Work Phone: 03-23-2021 Moderna COVID-19 Vac cine 100 MCG/0.5ML Intramuscular Suspension Shawna E Camacho Work Phone: [facility] 250 DO Work Phone: 02-22-2021 Moderna COVID-19 Vac cine 100 MCG/0.5ML Intramuscular Suspension Shawna E Camacho Work Phone: [facility] 250 DO Work Phone: 07-21-2019 influenza, injectabl e, quadrivalent, preservative free Shawna E Camacho Work Phone: [facility] 250 DO Work Phone: 03-05-2019 diphtheria, tetanus toxoids and acellular pertussis vaccine, unspecified formulation Shawna Camacho Other [facility] Other 03-05-2019 hepatitis A vaccine, adult dosage Shawna Autumn [place] Work Phone: [facility] [employer] DO Work Phone: 03-05-2019 tetanus toxoid, redu kyle diphtheria toxoid, and acellular pertussis vaccine, adsorbed Shawnaedmond Camacho Work Phone: [facility] [employer] DO Work Phone: 07-22-2018 influenza virus vacc ine, split virus (incl. purified surface antigen) Shawna Doug Other [facility] Other 07-22-2018 influenza, injectabl e, quadrivalent, preservative free Shawna Camacho Work Phone: [facility] [employer] DO Work Phone: 09-01-2017 influenza, injectabl e, quadrivalent, preservative free Shawna Autumn Camacho Work Phone: [facility] [employer] DO Work Phone: 07-19-2016 meningococcal oligosaccharide (groups A, C, Y and W-135) diphtheria toxoid conjugate vaccine (MCV4O) Shawna Camacho Other [facility] Other 07-19-2016 meningococcal polysaccharide (groups A, C, Y and W-135) diphtheria toxoid conjugate vaccine (MCV4P) Shawna Camacho Work Phone: [facility] [employer] DO Work Phone: 06-20-2016 hepatitis A vaccine, adult dosage Shawna Doug Other [facility] Other 08-07-2015 influenza, injectabl e, quadrivalent, preservative free Shawna Camacho Work Phone: [facility] [employer] DO Work Phone: 09-13-2014 tetanus and diphther ia toxoids, adsorbed, preservative free, for adult use (5 Lf of tetanus toxoid and 2 Lf of diphtheria toxoid) Shawna Camacho Other [facility] [employer] Other 11-20-2011 influenza, seasonal, injectable Shawna Camacho Work Phone: [facility] [employer] DO Work Phone: 06-19-2011 tetanus toxoid, redu kyle diphtheria toxoid, and acellular pertussis vaccine, adsorbed Shawna Camacho [facility] Work Phone: 10-11-2009 novel influenza-H1N1 -09, preservative-free, injectable Shawna Camacho Work Phone: [facility] Work Phone: 05-29-2004 diphtheria, tetanus toxoids and acellular pertussis vaccine, unspecified formulation Shawna Camacho Work Phone: [facility] [employer] DO Work Phone: 05-29-2004 measles, mumps and rubella virus vaccine Shawna Camacho Work Phone: [facility] Work Phone: 05-29-2004 poliovirus vaccine, inactivated Shawna Camacho Work Phone: [facility] Work Phone: 12-05-1999 diphtheria, tetanus toxoids and acellular pertussis vaccine, unspecified formulation Shawna Camacho Work Phone: [facility] DO Work Phone: 12-05-1999 haemophilus influenz ae type b vaccine, HbOC conjugate Shawna Camacho Work Phone: [facility] DO Work Phone: 12-05-1999 measles, mumps and rubella virus vaccine Shawna Camacho Work Phone: [place] [address] DO Work Phone: 12-05-1999 trivalent poliovirus vaccine, live, oral Shawna Camacho Work Phone: [place] [address] DO Work Phone: 05-31-1999 diphtheria, tetanus toxoids and acellular pertussis vaccine, unspecified formulation Shawna Leyva Camacho Work Phone: [place] [address] DO Work Phone: 05-31-1999 haemophilus influenz ae type b conjugate and Hepatitis B vaccine Shawna Leyva Camacho Work Phone: [place] [address] DO Work Phone: 03-01-1999 diphtheria, tetanus toxoids and acellular pertussis vaccine, unspecified formulation Shawna Leyva Camacho Work Phone: [place] [address] DO Work Phone: 03-01-1999 haemophilus influenz ae type b vaccine, HbOC conjugate Shawna Leyva Camacho Work Phone: [place] [address] DO Work Phone: 03-01-1999 poliovirus vaccine, inactivated Shawna E Camacho Work Phone: [place] [address] DO Work Phone: 1998 diphtheria, tetanus toxoids and acellular pertussis vaccine, unspecified formulation Shawna E Camacho Work Phone: [place] [address] DO Work Phone: 1998 haemophilus influenz ae type b conjugate and Hepatitis B vaccine Shawna E Camacho Work Phone: [place] [address] DO Work Phone: 2000 poliovirus vaccine, inactivated Shawna E Camacho Work Phone: [facility] [employer] 250 DO Work Phone: 2000 hepatitis B vaccine, pediatric or pediatric/adolescent dosage Shawna Camacho Work Phone: [facility] [employer] 250 DO Work Phone: 2000 hepatitis B vaccine, pediatric or pediatric/adolescent dosage Shawna Camacho Work Phone: [facility] [employer] 250 DO Work Phone: Payers Date Payer Category Payer Unknown 2015 Private Health Insurance [id number] 1998 Unknown [id number] 2.16.84 [id number] 1998 Unknown [id number] 2.16.84 [id number] 1998 Unknown [id number] 2.16. [id number] 1998 Unknown [id number] 2.16.84 [id number] 1998 Unknown [id number] 2.16.8 [id number] 1998 Unknown [id number] 2.16.8 [id number] 1998 Unknown [id number] 2.16.8 [id number] 1998 Unknown [id number] 2.16.84 [id number] 1959 Self-pay 1961 Unknown [id number] Unknown [id number] 2.16.84 [id number] Social History Date Type Detail Facility Unknown if ever smoked [facility] Other Start: 10-14-2023 End: 01-13-2024 [facility] Assigned At [facility] [employer] Other Start: 10-14-2023 End: 01-13-2024 No illicit drug use No illicit drug use -[facility] 250 DO Work Phone: Tobacco smoking status NHIS Tobacco smoking consumption unknown [facility] Work Phone: Start: 2000 [facility] Start: 09-22-2023 End: 10-14-2023 Exposure to SARS-CoV-2 (event) Not sure [facility] Start: 10-14-2023 End: 01-13-2024 Tobacco smoking status NHIS Never smoked tobacco [facility] Start: 10-14-2023 Tobacco use and exposure Smokeless tobacco non-user [facility] Work Phone: Start: 10-14-2023 Alcohol intake Lifetime non-d magdalena (finding) [facility] Work Phone: Start: 01-13-2024 Alcohol intake Current drinke r of alcohol (finding) [facility] Start: 01-13-2024 Alcohol Comment caffeine: 2-3 cups per day [facility] Clinical Notes 07-09-2023 to 01-02-2024 Note Date & Type Note Facility 01-02-2024 Evaluation note Encounter Date Diagnosis Assessment Notes Jan, LOIDA (obstruct marcelina sleep apnea) (ICD-10 - G47.33) 1 diagnostic sleep study faxed to [facility] patient requested follow-up there. Reports from home sleep study printed and included with the referral as she began treatment with [facility] where her heel pricker is based out of. [facility] Other [id number] History of Present illness Narrative* Gladys Gonsalez MD - 10/14/2023 3:00 PM EST Most recently seen August 26, 2023. Presents for follow-up after medication adjustments, Holter monitor, and blood work. Subjective : She complains of fatigue which she attributes to the acebutolol, however palpitations have improvedconsiderably. She is accompanied by her. Reviewed test results History so Far : 1. Palpitations 2. Shortness of breath 3. Fatigue 4. Hypertensive, without prior diagnosis of hypertension 5. Irregular menstrual cycles 6. Patient has been on high risk medication Adipex on and off. 7. She has tried diligently multiple methods such as intermittent fasting regular aerobic activity as much as tolerated, reducing calorie consumption, but has not been able to lose weight in any significant form. 8. Agents like Mounjaro and Ozempic are not covered by her insurance. 9. October 2023-LVEF 65%, normal chamber dimensions, LV end-systolic diameter 2.7 cm, grossly normal valves, PA pressure not estimated. 10. Holter monitor October 2023-predominant rhythm sinus, no malignant dysrhythmia identified. Patient had several symptoms during monitoring. Objective Wt Readings from Last 3 Encounters: 10/14/23 119 kg (262 lb) 10/02/23 118 kg (261 lb) Physical Exam: GENERAL APPEARANCE: in no acute distress. CHEST: Symmetric and non-tender. INTEGUMENT: Skin warm and dry HEENT: No gross abnormalities identified.No pallor or scleral icterus. NECK: Supple, no JVD, no bruit. NEURO/PSHCY: Alert and oriented x3; appropriate behavior and responses and responses LUNGS: Clear to auscultation bilaterally; normal respiratory effort. HEART: Rate and rhythm regular with no evident murmur; no gallop appreciated. ABDOMEN: Soft, non tender. MUSCULOSKELETAL: No gross deformities. EXTREMITIES: Warm There is no edema noted. Meds: Current Outpatient Medications Medication Instructions acebutolol (SECTRAL) 200 mg, oral, 2 times daily albuterol (Proventil HFA) 90 mcg/actuation inhaler 1 puff, inhalation, Every 4 hours PRN metFORMIN (GLUCOPHAGE) 500 mg, oral, Daily, With food omeprazole (PRILOSEC) 20 mg, oral, Daily, Do not crush or chew. spironolactone (ALDACTONE) 25 mg, oral, Daily No Known Allergies LABS: Problem List: Patient Active Problem List Diagnosis Date Noted Encounter to discuss test results 10/14/2023 Tiredness 10/14/2023 Abnormal EKG 10/01/2023 Elevated blood pressure reading 10/01/2023 Morbid obesity with BMI of 40.0-44.9, adult ([facility]) 10/01/2023 Palpitations 10/01/2023 Shortness of breath 10/01/2023 Sinus tachycardia 10/01/2023 Assessment: 1. Palpitations-improved on acebutolol 2. Preserved LV systolic function 3. Increased to BMI 4. Fatigue 5. High probability of obstructive sleep apnea. Recommendations: 1. Refill acebutolol 2. Consider Rybelsus for weight loss? Defer to primary 3. We will schedule home sleep study 4. Follow-up as scheduled. Follow up : 6 months Gladys Gonsalez MD [facility] Work Phone: 1(478) 873-746011-13-2023 Instructions* Patient Instructions* Deyvi Malhotra MA - 10/14/2023 3:00 PM EST Please bring all medicines, vitamins, and herbal supplements with you when you come to the office. Prescriptions will not be filled unless you are compliant with your follow up appointments or have a follow up appointment scheduled as per instruction of your physician. Refills should be requested at the time of your visit. [facility] Work Phone: 1(267) 267-652608-08-2023 Evaluation note* Encounter Date Diagnosis Assessment Notes Treatment Notes Treatment Clinical Notes Jul, Unspecified asthma, uncomplicated (ICD-10 - J45.909) requests refill of albuterol Jul, Other obesity due to excess calories (ICD-10 - E66.09) Adipex and stimulants are contraindicated. Will attempt to ROZINA Encinas Jul, Body mass index [BMI] 39.0-39.9, adult (ICD-10 - Z68.39) Jul, Tachycardia (ICD-10 - R00.0) agrees to cardio referral and labs today. Jul, Vitamin D deficiency (ICD-10 - E55.9) Has been taking OTC Supplement. It was 21 in December. [facility] Other Chief complaint Narrative - ReportedEMTAYE NEELY is being seen for an initial evaluation of tachycardia.-[facility] 250 DO Work Phone: Evaluation noteNo InformationNort [facility] Other Evaluation note* Diagnosis Palpitations Shortness of breath Abnormal EKG Nonspecific abnormal electrocardiogram (ECG) (EKG) documented in this encounter [facility] Work Phone: Evaluation note* Diagnosis Palpitations- Primary Encounter to discuss test results Other specified counseling Abnormal EKG Nonspecific abnormal electrocardiogram (ECG) (EKG) Elevated blood pressure reading Elevated blood pressure reading without diagnosis of hypertension Sinus tachycardia Other specified cardiac dysrhythmias Morbid obesity with BMI of 40.0-44.9, adult ([facility]) Shortness of breath Tiredness Other malaise and fatigue Sleep apnea, unspecified type documented in this encounter [facility] Work Phone: History general Narrative - Reported* Type Description Date Medical History Endocrine disorder, unspecified Medical History Secondary amenorrhea Medical History PCOS Medical History Asthma Surgical History WISDOM TEETH EXTRACTION 2016 Hospitalization History SEE SURGICAL HX [facility] Other Hisguqx general Narrative - Reported* Type Description Date Medical History Endocrine disorder, unspecified Medical History Secondary amenorrhea Medical History PCOS Medical History Asthma Medical History Hypertension Surgical History WISDOM TEETH EXTRACTION 2016 Hospitalization History SEE SURGICAL HX [facility] Other History of Present illness Narrative* 22-year-old is being seen in cardiology consultation regarding palpitations, fatigue, shortness of breath. 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 * She has been trying several methods for weight loss. She fasts from 5 PM to 7 AM, rides her bicycle5 days a week for 30 minutes, Alvita at a relatively low speed, attempt to take the stairs whenevershe can, but these activities make her very short of breath. * Has unrefreshed sleep, has not been tested for sleep apnea * Irregular menstrual period's, remains on estrogen, which improves her menstrual cycles. At times she has cycles lasting 30 days. * No hirsutism. * She reports that Ozempic and Mounjaro are not covered on her insurance. * She was a full-term baby at , but did have some issues with oxygenation, details are not available * Reviewed laboratory data from July 2023 potassium 3.9 GFR greater than 60 hemoglobin 13.2, TSH 1.5 * Blood pressure was rechecked still elevated * EKG reviewed, sinus tachycardia cannot exclude right atrial abnormality * Assessment: * 1. Palpitations * 2. Shortness of breath * 3. Fatigue * 4. Hypertensive, without prior diagnosis of hypertension * 5. Irregular menstrual cycles * 6. Patient has been on high risk medication Adipex on and off. * 7. She has tried diligently multiple methods such as intermittent fasting regular aerobic activity as much as tolerated, reducing calorie consumption, but has not been able to lose weight in any significant form. * 8. Agents like Mounjaro and Ozempic are not covered by her insurance. * Recommendations: * 1. Echocardiogram * 2. 48-hour Holter monitor * 3. Acebutolol 200 mg p.o. twice daily * 4. Aldactone 25 mg daily * 5. Hemoglobin A1c near future * 6. Follow-up after testing, additional recommendations to be based on clinical course and findings. * Consider Rybelsus for weight loss, possibly covered * We will pursue the issue of sleep apnea at subsequent visits. * Thank you for allowing us to participate in Fer's care please do not hesitate to call if further questions arise, * Sincerely, * Gladys Gonsalez MD [facility] 250 DO Work Phone: Reason for referral (narrative)* Consultation (Routine) - Authorized Specialty Diagnoses / Procedures Referred By Contdiego t Referred To Contact Cardiology Diagnoses Palpitations Sinus tachycardia Shortness of breath Procedures Follow Up In Cardiology Gladys Gonsalez MD [address] [place] [address] Gladys Gonsalez MD [address] [place] [address] Referral ID Status Reason Start Date Expiration Date V isits Requested Visits Authorized [id number] Authorized 10/14/2023 10/13/2024 1 1 * Sleep - Outpatient (Routine) - Pending Review Specialty Diagnoses / Procedures Referred By Contac t Referred To Contact Sleep Lab Diagnoses Shortness of breath Tiredness Sleep apnea, unspecified type Procedures Home sleep apnea test (HSAT) Gladys Gonsalez MD [address] [place] [address] [address] [place] [address] Referral ID Status Reason Start Date Expiration Date V isits Requested Visits Authorized [id number] Pending Review 10/14/2023 10/13/2024 1 1 [facility] Work Phone: Summary Purpose Family History No Family History Records FoundUnknown Family Member Name Dates Details Family history of cardiomyop athy: Mother(V17.49, Z82.49) Status:Active Type 2 diabetes mellitus wit h other circulatory complication: Mother Status:Active No pertinent family history: Father(V49.89, Z78.9) Status:Active Advance Directives No Advanced Directives Records FoundNo Advanced Directives Records FoundNo Advanced Directives Records FoundNo Advanced Directives Records FoundNo Advanced Directives Records FoundNo Advanced Directives Records FoundNo Advanced Directives Records FoundNo Advanced Directives Records Found Reason for Referral Reason Elevated resting hea rt rate. Diagnosis 1 Tachycardia (R00.0) Referral Organization [facility] yvonne Referring Provider First Name Shawna Referring Provider Last Name Doug Referring Provider Specialty Family [facility] Referred Organization [facility] enter Referred Address [address] [facility] [address] [place] [address] Referred Provider Specialty Cardiology Referral Priority Routine Specialty Diagnoses / Procedures Referred By Jesus Alberto tobias Referred To Contact Cardiology Diagnoses Palpitations Shortness of breath Abnormal EKG Procedures Transthoracic Echo (TTE) Complete VT ECHO TRANSTHORC R-T 2D W/WO M-MODE REC F-UP/LMTD VT DOP ECHOCARD COLOR FLOW VELOCITY MAPPING VT DOP ECHOCARD PULSE WAVE W/SPECTRAL F-UP/LMTD STD Gladys Gonsalez MD [address] [facility] [address] [place] [address] Referral ID Status Reason Start Date Expiration Date Visits Requested Visits Authorized [id number] Authorized Perform Procedure 08/26/2023 02/22/2024 1 1 Additional Source Comments INFORMATION SOURCE (unrecogn ized section and content) DATE CREATED AUTHOR 05/28/2018 [facility] ntvladimir Pimentelon DATE CREATED AUTHOR AUTHOR'S ORGANIZ ATION 07/12/2020 [facility] DATE CREATED AUTHOR AUTHOR'S ORGANIZ ATION 04/10/2022 [facility] dical Specialist DATE CREATED AUTHOR AUTHOR'S ORGANIZ ATION 01/05/2023 [facility] DATE CREATED AUTHOR AUTHOR'S ORGANIZ ATION 07/11/2023 [facility] DATE CREATED AUTHOR AUTHOR'S ORGANIZ ATION 10/07/2023 [facility] DATE CREATED AUTHOR AUTHOR'S ORGANIZ ATION 11/24/2023 [facility] DATE CREATED AUTHOR AUTHOR'S ORGANIZ ATION 02/04/2024 [facility] dical Specialists EPIC REASON FOR VISIT (unrecogniz ed section and content) Specialty Diagnoses / Procedures Referred By Contac t Referred To Contact Cardiology Diagnoses Palpitations Shortness of breath Abnormal EKG Procedures Transthoracic Echo (TTE) Complete VT ECHO TRANSTHORC R-T 2D W/WO M-MODE REC F-UP/LMTD VT DOP ECHOCARD COLOR FLOW VELOCITY MAPPING VT DOP ECHOCARD PULSE WAVE W/SPECTRAL F-UP/LMTD STD Gladys Gonsalez MD [address] [facility] [address] [place] [address] Referral ID Status Reason Start Date Expiration Date Visits Requested Visits Authorized [id number] Authorized Perform Procedure 08/26/2023 02/22/2024 1 1 Reason Comments Follow-up Holter/echo results Care Teams (unrecognized sec tion and content) Mental Health Consultant Relationship Specialty Start Date End Date Shawna Camacho MD [address] [place] [address] PCP - General 07/10/23 Mental Health Consultant Relationship Specialty Start Date End Date Shawna Camacho MD [address] [place] [address] PCP - General 07/10/23 Mental Health Consultant Relationship Specialty Start Date End Date Shawna Camacho MD PCP - General 07/10/23 FOR RECORDS PERTAINING TO PATIENTS WHO ARE OR HAVE BEEN ENROLLED IN A CHEMICAL DEPENDENCY/SUBSTANCEABUSE PROGRAM, SOME INFORMATION MAY BE OMITTED. This clinical summary was aggregated from multiple sources. Caution should be exercised in using it in the provision of clinical care. This summary normalizes information from multiple sources, and as a consequence, information in this document may materially change the coding, format and clinical context of patient data. In addition, data may be omitted in some cases. CLINICAL DECISIONS SHOULD BE BASED ON THE PRIMARY CLINICAL RECORDS. [facility] [employer] provides no warranty or guarantee of the accuracy or completeness of information in this document.
== END 2024-02-18 19:56 | disposition home or self-care (01) ==
LOC: SLEEP 19:55
PROVIDERS: PCP Family Medicine; Visit Provider Family Medicine
DX: G47.33 Obstructive sleep apnea (adult) (pediatric) (principal)
CPT/HCPCS: 95811

== ENCOUNTER 2024-04-09 15:51 | Outpatient (OUT) | payer BC, SELFPAY ==
[2024-04-09 16:12] LABS: Basophils Percent Auto 0.5 % (0.2-2.0); Eosinophils Absolute Auto 0.1 10^3/uL (0.0-0.7); Eosinophils Percent Auto 1.4 % (0.9-7.0); Hematocrit 38.6 % (36.0-48.0); Hemoglobin 12.6 g/dL (12.0-16.0); Lymphocytes Absolute Auto 3.1 10^3/uL (1.2-3.8); Lymphocytes Percent Auto 38.5 % (20.5-60.0); Mean Corpuscular HGB Conc 32.6 g/dL (29.9-35.2); Mean Corpuscular Hemoglobin 30.1 pg (26.7-34.0); Mean Corpuscular Volume 92.1 fL (81.0-99.0); Mean Platelet Volume 10.8 fL (9.5-13.5); Monocytes Absolute Auto 0.5 10^3/uL (0.3-0.8); Monocytes Percent Auto 6.5 % (1.7-12.0); Neutrophils Absolute Auto 4.2 10^3/uL (1.4-6.5); Neutrophils Percent Auto 53.1 % (43.0-75.0); Platelet Count 262 10^3/uL (150-450); Red Blood Count 4.19 10^6/uL (4.20-5.40); Red Cell Distribution Width 13.2 % (11.0-15.0)
[2024-04-09 16:57] LABS: TSH W/ REFLEX FT4 2.584 uIU/mL (0.358-3.740)
== END 2024-04-09 15:52 | disposition home or self-care (01) ==
LOC: LAB 15:52
PROVIDERS: PCP Family Medicine; Visit Provider Family Medicine
DX: R22.2 Localized swelling, mass and lump, trunk (principal); R22.31 Localized swelling, mass and lump, right upper limb
CPT/HCPCS: 36415; 82306; 84443; 85025

== ENCOUNTER 2024-04-16 14:07 | Outpatient (OUT) | payer BC, SELFPAY ==
--- NOTE | 2024-04-16 14:14 | US_ITS ---
Patient Name: FER HOOPER MR#: [id number] : 2000 Exam Date: 04/16/2024 Ordering Doctor: DR Rina Lund M.D. RADIOLOGY REPORT PROCEDURE: US BREAST BI LIMITED COMPARISON: None. INDICATIONS: Mass Of Right Axilla, Chest Mass; bilateral breast tenderness between 11 o'clock and 1 o'clock positions. TECHNIQUE: Breast ultrasound was performed, with evaluation focusing only on specific areas of concern. FINDINGS: DIAGNOSTIC CATEGORY 2--BENIGN FINDING: RIGHT BREAST: Anechoic 8 mm cyst at the 11 o'clock position 5.6 mm is from the nipple corresponding to area of tenderness. No suspicious findings. LEFT BREAST: No significant suspicious finding. RECOMMENDATIONS: CLINICAL EVALUATION. PLEASE NOTE: A NORMAL ULTRASOUND EXAMINATION DOES NOT EXCLUDE THE POSSIBILITY OF BREAST CANCER. A CLINICALLY SUSPICIOUS PALPABLE LUMP SHOULD BE BIOPSIED. Dictated by: Ralph Peng M.D. on 04/16/2024 at 14:56 Approved by: Ralph Peng M.D. on 04/16/2024 at 15:00
== END 2024-04-16 14:08 | disposition home or self-care (01) ==
LOC: US 14:07
PROVIDERS: PCP Family Medicine; Visit Provider Family Medicine
DX: R22.31 Localized swelling, mass and lump, right upper limb (principal); R22.2 Localized swelling, mass and lump, trunk; N60.01 Solitary cyst of right breast
CPT/HCPCS: 76642

== ENCOUNTER 2025-02-15 20:32 | Outpatient (REF) | payer OTHER, SELFPAY ==
--- OUTSIDE RECORDS SUMMARY | 2025-02-15 20:36 | XMS_ITS | CCD ---
Author Organization [facility] Care Team Providers Care Gravity Meter Operator Name Role Phone REQUEST, DR GARDINER LISTED Admitting Unavaila ble REQUEST, DR GARDINER LISTED Attending Unavaila ble CAMACHO, DR SHAWNA Tripp Primary Care Unavailable REQUEST, DR GARDINER LISTED Consulting Unavaila ble JENNIFER, DR MARIA Admitting Unavailable JENNIFER, DR MARIA Attending Unavailable CAMACHO, DR SHAWNA Tripp Primary Care Unavailable JENNIFER, DR MARIA Consulting Unavailable DOUG, DR SHAWNA Tripp Admitting Unavailable DOUG, DR SHAWNA Tripp Attending Unavailable DOUG, DR SHAWNA Tripp Primary Care Unavailable DOUG, DR SHAWNA Tripp Consulting Unavailable Shawna Camacho Unavailable Dr. Shawna Camacho Primary Care Unav ailable Shawna Camacho Unavailable Unavailable Unavailable Shawna Camacho MD Primary Care Provider Shawna Camacho MD Primary Care Provider Unavailable Unavailable Primary Care Provider UnavailNIKOLAY Camejo Attending Unavailable GLADYS GONSALEZ Referring Unavailable SHAWNA CAMACHO Primary Care Unavailable Shawna Camacho MD Primary Care Provider SARWAT MAGAÑA Attending Unavailable GLADYS GONSALEZ Referring Unavailable SHAWNA CAMACHO Primary Care Unavailable GLADYS GONSALEZ Attending Unavailable SARWAT MAGAÑA Referring Unavailable SHAWNA CAMACHO Primary Care Unavailable Medications Current Medications Medication Drug Class(es) Dates Sig (Normalized) Sig (Original) 0.5 ML tirzepatide 5 MG/ML Auto-Injector [Mounjaro] (3 sources) Mounjaro 2.5 MG/0.5ML as directed Subcutaneous weekly for 28 days Active acebutolol 200 mg oral capsule (10 sources) beta-Adrenergic Jose Start: 11-09-2024 End: 11-09-2025 take 1 capsule by mouth twice daily acebutolol (Sectral) 200 mg capsule Indications: Palpitations , Sinus tachycardia Take 1 capsule (200 mg) by mouth 2 times a day. 180 capsule 3 11/09/2024 11/09/2025 Active Start: 05-27-2024 End: 05-27-2025 take 1 capsule by mouth once daily acebutolol (Sectral) 200 mg capsule Indications: Palpitations , Sinus tachycardia Take 1 capsule (200 mg) by mouth once daily. 90 capsule 09/28/2024 11/09/2024 Discontinued (Reorder) Start: 10-14-2023 End: 10-13-2024 take 1 capsule by mouth twice daily Acebutolol Active 200 MG PO Twice daily March 31, 2024 12:00am FreeTextSi capsule twice a day; Note: Source Status: Taking; Provider: Doug Flynn ( ) Start: 08-26-2023 take [address] [facility] once daily Acebutolol HCl - 200 MG Oral Capsule TAKE 1 CAPSULE EVERY 12 HOURS DAILY. Quantity: 180 Refills: 1 Ordered: 26-Aug-2023 Chun Gonsalez MDtha Start : 26-Aug-2023 Active [id number] 200 actuat albuterol 0.09 mg/actuat metered dose inhaler (10 sources) beta2-Adrenergic Agonist Start: 03-31-2024 take 1 puff(s) by inhalation every four hours as needed Albuterol Sulfate Active INHALATION March 31, 2024 12:00am FreeTextSig: INHALE 1 PUFF EVERY 4 HOURS NEEDED; Note: Source Status: Taking; Refills: 1; Qty: 18 Each; Provider: Doug Flynn ( ) take 1 puff(s) by in halation every four hours albuterol (Proventil HFA) 90 mcg/actuati on inhaler Inhale 1 puff every 4 hours if needed. Active take 1 puff(s) by in halation every four hours as needed Albuterol Sulfate HFA 108 (90 Base) MCG/ ACT INHALE 1 PUFF EVERY 4 HOURS NEEDED [...] sample from Dr. Mcconnell *Pick strength-form from [employer] for eRX* Aug, Active loestrin 1.5/30 (21) 1.5-30 mg-mcg tablet (5 sources) Estrogen take 1 tablet by mouth [...] once daily. As directed 0 Active fluticasone propionate 0.05 mg/actuat metered dose nasal spray (4 sources) Corticosteroid Start: 03-31-2024 take 1 spray(s) nasal route once daily Fluticasone Propionate (Allergy Relief (Fluticasone)) 50 mcg/actuation spray,suspension Active 1 SPRAY INTRANASAL Daily March 31, 2024 12:00am administer into each nostril Start: 02-19-2022 Fluticasone Pr opionate 50MCG/ACT Fluticasone Propionate( 50MCG/ACT Nasal ) Active -Hx Entry Nasal for 0 *Pick strength-form from [employer] for eRX* Jan, Active loratadine 10 mg oral tablet (4 sources) Start: 03-31-2024 take 1 tablet by mouth once daily Loratadine (Allergy Relief (Loratadine)) 10 mg tablet Active 10 MG PO Daily March 31, 2024 12:00am Start: 02-19-2022 Loratadine 10M G Loratadine( 10MG Oral ) Active -Hx Entry Oral for 0 *Pick strength-form from [employer] for eRX* Jan, Active omeprazole 20 mg delayed release oral capsule (12 sources) Proton Pump Inhibitor Start: 03-31-2024 take 1 capsule by mouth once daily Omeprazole Active 1 CAP PO Daily March 31, 2024 12:00am FreeTextSig: TAKE 1 CAPSULE BY MOUTH EVERY DAY; Note: Source Status: Taking; Refills: 1; Qty: 90 Capsule; Provider: Doug Flynn ( ) Completed/Discontinued Medications Medication Drug Class(es) Dates Sig (Normalized) Sig (Original) Loestrin 1.5 () 1.5-30 MG-MCG Oral Tablet (1 source) take 1 tablet by mouth once daily Loestrin 1.5 () 1.5-30 MG-MCG Oral Tablet TAKE 1 TABLET DAILY DIRECTED. Quantity: 0 Refills: 0 Ordered: 26-Aug-2023 DO Active metFORMIN hydrochloride 500 mg oral tablet (14 sources) Biguanide Start: 03-31-2024 End: 04-02-2024 take 1 tablet by mouth once daily Metformin Discontinued MG PO March 31, 2024 12:00am April 02, 2024 8:41am FreeTextSi tablet with a meal Oral Once a day; Note: Source Status: Not-Taking\PRN; Provider: Doug Flynn ( ) Start: 07-29-2023 take 1 tablet by blaze once daily at mealtime metFORMIN XR (Glucophage-XR) 500 MG 24 hr tablet Indications: Weight loss TAKE 1 TABLET BY MOUTH ONCE EVERY EVENING WITH MEAL 30 tablet 5 07/29/2023 Active Start: 08-11-2021 End: 05-27-2024 take 1 tablet by mouth every twenty-four hours metFORMIN HCl 500 MG 1 tablet with a meal Oral Once a day for 0 days Aug, Active spironolactone 25 mg oral tablet (10 sources) Aldosterone Antagonist Start: 08-26-2023 End: 11-09-2025 take 1 tablet by mouth once daily spironolactone (Aldactone) 25 mg tablet Indications: Palpitations , Sinus tachycardia , Shortness of breath Take 1 tablet (25 mg) by mouth once daily. 90 tablet 3 10/14/2023 05/27/2024 Discontinued (Reorder) Tirzepatide (4 sources) Start: 04-16-2024 End: 07-30-2024 Tirzepatide (Mounjaro) 2.5 mg/0.5 mL pen injector Discontinued 2.5 MG SUBCUT every week 2 April 16, 2024 10:57am July 30, 2024 3:54pm Start: 03-24-2024 End: 04-16-2024 Tirzepatide (Mounjaro) 2.5 m g/0.5 mL pen injector Discontinued 2.5 MG SUBCUT every week 01 29March 24, 2024 12:00am April 16, 2024 10:57am Start: 01-23-2024 End: 02-11-2024 Tirzepatide (Mounjaro) 2.5 m g/0.5 mL pen injector Discontinued 0 .ROUTE .COMPLEX January 23, 2024 2:50pm February 11, 2024 9:38am INJECT SUBCUTANEOUSLY ONCE A WEEK DIRECTED Start: 01-23-2024 End: 01-23-2024 Tirzepatide (Mounjaro) 2.5 m g/0.5 mL pen injector Discontinued 2.5 MG SUBCUT every week January 23, 2024 1:00am January 23, 2024 2:51pm Tirzepatide (1 source) Start: 02-11-2024 End: 03-24-2024 Tirzepatide (Mounjaro) 5 mg/0.5 mL pen injector Discontinued 5 MG SUBCUT every week 2 February 11, 2024 12:00am March 24, 2024 1:13pm tirzepatide (Mounjaro) 2.5 mg/0.5 mL pen injector (2 sources) End: 11-09-2024 inject 2.5 mg by subcutaneous injection every week tirzepatide (Mounjaro) 2.5 mg/0.5 mL pen injector Inject 2.5 mg under the skin 1 (one) time per week. 11/09/2024 Discontinued (Discontinued by another clinician) inject 2.5 mg by sub cutaneous injection every week tirzepatide (Mounjaro) 2.5 mg/0.5 mL pen injector Inject 2.5 mg under the skin 1 (one) time per week. Active Problems Active Problems Problem Classification Problem Date Documented Date Episodic/Chronic Acute and chronic tonsillitis (6 sources) Acute tonsillitis, unspecified; Translations: [Acute tonsillitis] Onset: 02-22-2022 Episodic Asthma (11 sources) Asthma without status asthmaticus; Translations: [Asthma, unspecified, unspecified status] Onset: 04-22-2017 Chronic Contraceptive and procreative management (5 sources) Surveillance of oral contraception done; Translations: [Encounter for surveillance of contraceptive pills] Episodic Essential hypertension (5 sources) Essential hypertension; Translations: [Essential (primary) hypertension] Onset: 11-09-2024 11-09-2024 Chronic Immunizations and screening for infectious disease (1 source) Encounter for screening for human papillomavirus (HPV); Translations: [ENC SCREENING HUMAN PAPILLOMAVIRUS] Onset: 01-01-2023 Episodic Malaise and fatigue (17 sources) Other fatigue; Translations: [Fatigue] Onset: 02-19-2022 Episodic Menstrual disorders (15 sources) Secondary amenorrhea; Translations: [Secondary amenorrhea] Onset: 09-03-2016 Chronic Nutritional deficiencies (6 sources) Vitamin D deficiency; Translations: [Vitamin D deficiency, unspecified] Chronic Other aftercare (5 sources) Long-term current use of drug therapy; Translations: [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] Episodic Other aftercare (5 sources) Long-term current use of hormonal contraceptive; Translations: [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] Episodic Other aftercare (1 source) Treatment changed; Translations: [Long-term (current) use of other medications] Episodic Other endocrine disorders (5 sources) Disorder of endocrine system; Translations: [Endocrine disorder, unspecified] Episodic Other non-traumatic joint disorders (5 sources) Arthralgia of the lower leg; Translations: [Pain in joint, lower leg] Episodic Other nutritional; endocrine; and metabolic disorders (15 sources) Obese class II; Translations: [Body mass index 35.0-35.9, adult] Onset: 07-10-2018 Chronic Other nutritional; endocrine; and metabolic disorders (5 sources) Obesity caused by energy imbalance; Translations: [Other obesity due to excess calories] Chronic Other nutritional; endocrine; and metabolic disorders (5 sources) Obesity; Translations: [Obesity, unspecified] Chronic Other nutritional; endocrine; and metabolic disorders (9 sources) Body mass index 30+ - obesity; Translations: [Body mass index (BMI) 39.0-39.9, adult] Onset: 05-27-2024 11-09-2024 Chronic Other nutritional; endocrine; and metabolic disorders (1 source) Other obesity due to excess calories Chronic Other nutritional; endocrine; and metabolic disorders (1 source) Body mass index (BMI) 39.0-39.9, adult Chronic Other nutritional; endocrine; and metabolic disorders (7 sources) Body mass index 40+ - severely obese; Translations: [Morbid obesity] Onset: 10-01-2023 10-01-2023 Chronic Other nutritional; endocrine; and metabolic disorders (2 sources) Body mass index (BMI) 35.0-35.9, adult; Translations: [Body mass index (BMI) 35.0-35.9, adult] Onset: 11-09-2024 Chronic Other nutritional; endocrine; and metabolic disorders (2 sources) Body mass index (BMI) 33.0-33.9, adult; Translations: [Body mass index (BMI) 33.0-33.9, adult] Onset: 05-27-2024 Chronic Other nutritional; endocrine; and metabolic disorders (5 sources) Abnormal weight gain; Translations: [Abnormal weight gain] Episodic Other skin disorders (1 source) Mass of thoracic structure; Translations: [Localized swelling, mass and lump, trunk] 04-02-2024 Episodic Other skin disorders (1 source) Localized swelling, mass and lump, right upper limb; Translations: [Mass of right axilla] 04-02-2024 Episodic Other upper respiratory infections (15 sources) Acute maxillary sinusitis; Translations: [Acute recurrent maxillary sinusitis] Onset: 12-06-2014 Episodic Otitis media and related conditions (10 sources) Non-suppurative otitis media; Translations: [Unspecified nonsuppurative otitis media, bilateral] Onset: 12-05-2018 Episodic Residual codes; unclassified (1 source) Sleep apnea; Translations: [Sleep apnea, unspecified] 10-14-2023 Chronic Residual codes; unclassified (4 sources) Obstructive sleep apnea syndrome; Translations: [Obstructive sleep apnea (adult) (pediatric)] Onset: 11-09-2024 11-09-2024 Chronic Residual codes; unclassified (4 sources) Obstructive sleep apnea (adult) (pediatric); Translations: [Obstructive sleep apnea (adult) (pediatric)] Onset: 11-09-2024 Chronic Residual codes; unclassified (7 sources) Other specified health status; Translations: [Health status] Onset: 11-09-2024 Episodic Residual codes; unclassified (2 sources) Never smoked tobacco; Translations: [Other specified health status] Onset: 11-09-2024 11-09-2024 Episodic Unclassified (1 source) Unknown / UNK(Unknown) Onset: 08-08-2017 Past or Other Problems Problem Classification Problem Date Documented Da te Episodic/Chronic Administrative/social admission (15 sources) 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; Translations: [Person consulting for explanation of examination or test findings] Onset: 10-14-2023 10-14-2023 Episodic Cardiac dysrhythmias (20 sources) Tachycardia, unspecified; Translations: [Palpitations] Onset: 10-01-2023 Episodic Fracture of upper limb (5 sources) Closed fracture of one or more phalanges of hand; Translations: [Closed fracture of unspecified phalanx or phalanges of hand] Onset: 12-23-2013 Episodic Headache, including migraine (1 source) Headache, including migraine Onset: 08-08-2017 Nausea and vomiting (5 sources) Nausea; Translations: [Nausea] Resolved: 08-11-2021 Episodic Other circulatory disease (7 sources) Elevated blood pressure; Translations: [Elevated blood pressure reading without diagnosis of hypertension] Onset: 10-01-2023 10-01-2023 Episodic Other connective tissue disease (5 sources) Pain in finger; Translations: [Pain in unspecified finger(s)] Onset: 12-18-2013 Resolved: 08-11-2021 Episodic Other injuries and conditions due to external causes (5 sources) Motion sickness; Translations: [Motion sickness, initial encounter] Onset: 04-08-2019 Episodic Other lower respiratory disease (12 sources) Dyspnea; Translations: [Shortness of breath] Onset: 10-01-2023 10-02-2023 Episodic Other lower respiratory disease (2 sources) Shortness of breath; Translations: [Shortness of breath] Onset: 10-01-2023 Episodic Other non-traumatic joint disorders (5 sources) Shoulder joint pain; Translations: [Pain in right shoulder] Onset: 09-27-2015 Episodic Other screening for suspected conditions (not mental disorders or infectious disease) (16 sources) Encounter for screening for malignant neoplasm of cervix; Translations: [Electrocardiogram abnormal] Onset: 12-31-2022 Episodic Other skin disorders (5 sources) Disorder of skin and/or subcutaneous tissue; Translations: [Disorder of the skin and subcutaneous tissue, unspecified] Onset: 12-06-2017 Episodic Skin and subcutaneous tissue infections (10 sources) Cellulitis and abscess of upper arm; Translations: [Cellulitis and abscess of upper arm and forearm] Onset: 05-15-2018 Resolved: 08-11-2021 Episodic Unclassified (1 source) Never smoked tobacco; Translations: [Never a smoker] Unclassified (1 source) Patient status finding; Translations: [Patient new to provider] Results Test Name Value Interpretation Reference Range Facility Basophils Auto (Bld) [#/Vol] on 07-17-2024 Basophils (Bld) [#/Vol] 0.0 10 3/uL 0.0-0.1 [facility] Basophils/100 WBC Auto (Bld) on 07-17-2024 Basophils/100 WBC (Bld) 0.4 % 0.2-2.0 [facility] Cholesterol in LDL Calc [Mas s/Vol]on 07-17-2024 Cholesterol in LDL [Mass/Vol] 119.0 mg/dL [facility] Comment on above: <100 mg/dl [id number] 0-129 mg/dl NEAR OR ABOVE [id number] mg/dl BORDERLINE [id number] mg/dl HIGH>190 mg/dl VERY HIGH Cholesterol in VLDL Calc [Ma ss/Vol]on 07-17-2024 Cholesterol in VLDL [Mass/Vol] 29.0 mg/dL [facility] Eosinophils/100 WBC Auto (Bl d)on 07-17-2024 Eosinophils/100 WBC (Bld) 1.2 % 0.9-7.0 [facility] Erythrocyte distribution wid th Auto (RBC) [Ratio]on 07-17-2024 Erythrocyte distribution width (RBC) [Ratio] 13.1 % 11.0-15.0 [facility] Estimated glomerular filtrat ion rate (GFR) non- Americanon 07-17-2024 GFR/1.73 sq M.predicted among non-blacks MDRD (S/P/Bld) [Vol rate/Area] mL/min/{1.73_m2} >=60 [facility] Globulin Calc (S) [Mass/Vol] on 07-17-2024 Globulin (S) [Mass/Vol] 3.6 g/dL [facility] Hematocrit Auto (Bld) [Volum e fraction]on 07-17-2024 Hematocrit (Bld) [Volume fraction] 42.0 % 36.0-48.0 [facility] Hemoglobin [Mass/volume] in Bloodon 07-17-2024 Hemoglobin (Bld) [Mass/Vol] 13.4 g/dL 12.0-16.0 [facility] Laboratory - Chemistry and C hemistry - challengeon 07-17-2024 Albumin [Mass/Vol] 3.8 g/dL 3.4-5.0 [facility] ALP [Catalytic activity/Vol] 88 U/L 46-116 [facility] ALT [Catalytic activity/Vol] 25 U/L 14-59 [facility] AST [Catalytic activity/Vol] 16 U/L 15-37 [facility] Bilirubin [Mass/Vol] 0.4 mg/dL 0.2-1.0 [facility] Calcium [Mass/Vol] 9.2 mg/dL 8.5-10.1 [facility] Chloride [Moles/Vol] 101 mmol/L 98-107 [facility] Cholesterol [Mass/Vol] 203 mg/dL High <=200 [facility] Cholesterol in HDL [Mass/Vol] 55 mg/dL 40-60 [facility] Comment on above: > or =60 mg/dl - LOW CARDIOVASCULAR RISK<40 mg/dl - HIGH CARDIOVASCULAR RISK CO2 [Moles/Vol] 27.5 mmol/L 21.0-32.0 [facility] Creatinine [Mass/Vol] 0.85 mg/dL 0.55-1.02 [facility] GFR/1.73 sq M.predicted MDRD (S/P/Bld) [Vol rate/Area] mL/min/{1.73_m2} >=60 [facility] Glucose [Mass/Vol] 95 mg/dL 74-106 [facility] Potassium [Moles/Vol] 4.1 mmol/L 3.5-5.1 [facility] Protein [Mass/Vol] 7.4 g/dL 6.4-8.2 [facility] Sodium [Moles/Vol] 139 mmol/L 136-145 [facility] Triglyceride [Mass/Vol] 145 mg/dL <=150 [facility] TSH Qn 1.772 m[IU]/L 0.358-3.740 [facility] Urea nitrogen [Mass/Vol] 12.0 mg/dL 7.0-18.0 [facility] Urea nitrogen/Creatinine [Mass ratio] 14.1 mg/mg [facility] Laboratory - Hematology and Cell countson 07-17-2024 Immature granulocytes/100 WBC (Bld) 0.1 % 0.0-0.5 [facility] Leukocytes [#/volume] correc daysi for nucleated erythrocytes in Blood by Automated counon 07-17-2024 WBC corrected for nucl RBC Auto (Bld) [#/Vol] 7.3 10 3/uL 4.0-11.0 [facility] Lymphocytes Auto (Bld) [#/Vo l]on 07-17-2024 Lymphocytes (Bld) [#/Vol] 2.9 10 3/uL 1.2-3.8 [facility] Lymphocytes/100 WBC Auto (Bl d)on 07-17-2024 Lymphocytes/100 WBC (Bld) 39.3 % 20.5-60.0 [facility] MCH Auto (RBC) [Entitic mass ]on 07-17-2024 MCH (RBC) [Entitic mass] 30.2 pg 26.7-34.0 [facility] MCHC Auto (RBC) [Mass/Vol]on 07-17-2024 MCHC (RBC) [Mass/Vol] 31.9 g/dL 29.9-35.2 [facility] MCV Auto (RBC) [Entitic vol] on 07-17-2024 MCV (RBC) [Entitic vol] 94.6 fL 81.0-99.0 [facility] Monocytes Auto (Bld) [#/Vol] on 07-17-2024 Monocytes (Bld) [#/Vol] 0.4 10 3/uL 0.3-0.8 [facility] Monocytes/100 WBC Auto (Bld) on 07-17-2024 Monocytes/100 WBC (Bld) 4.9 % 1.7-12.0 [facility] Neutrophils Auto (Bld) [#/Vo l]on 07-17-2024 Neutrophils (Bld) [#/Vol] 4.0 10 3/uL 1.4-6.5 [facility] Neutrophils/100 WBC Auto (Bl d)on 07-17-2024 Neutrophils/100 WBC (Bld) 54.1 % 43.0-75.0 [facility] No Panel Informationon 07-17 Eosinophils # (Auto) 0.1 10 3/uL 0.0-0.7 [facility] Immature Granulocyte # (Auto) 0.01 10 3/uL 0.00-0.03 [facility] Platelet mean volume Auto (B ld) [Entitic vol]on 07-17-2024 Platelet mean volume (Bld) [Entitic vol] 11.7 fL 9.5-13.5 [facility] Platelets Auto (Bld) [#/Vol] on 07-17-2024 Platelets (Bld) [#/Vol] 315 10 3/uL 150-450 [facility] RBC Auto (Bld) [#/Vol]on RBC (Bld) [#/Vol] 4.44 10 6/uL 4.20-5.40 [facility] Serum or plasma albumin/glob ulin mass ratioon 07-17-2024 Albumin/Globulin [Mass ratio] 1.1 {ratio} [facility] Serum or plasma anion gap de terminationon 07-17-2024 Anion gap [Moles/Vol] 14.6 mmol/L [facility] Serum or plasma total choles terol/high density lipoprotein (HDL) cholesterol mass kat 07-17-2024 Cholesterol.total/Chol esterol in HDL [Mass ratio] 3.7 {ratio} [facility] Comment on above: 3.3 - 4.4 LOW RISK4. 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: Martita Gould RDCS, RVT Gender: F Additional Staff: Height: 167.64 cm Admit Date: Weight: 118.39 kg Admission Status: BSA: 2.24 m2 Department Location: [facility] Blood Pressure: 168 /96 mmHg Study Type: TRANSTHORACIC ECHO (TTE) COMPLETE Diagnosis/ICD: Palpitations-R00.2; Shortness of breath-R06.02; Abnormal electrocardiogram [ECG] [EKG]-R94.31 Indication: Sinus Tachycardia, Morbid Obesity, Elevated BP Reading CPT Codes: Echo Complete w Full Doppler-[id number] Study Detail: The following Echo studies were [...] 1.0 m/s (0.6-0.9m/s) PV Max P.4 mmHg [id number] Phong Walker MD Electronically signed on 10/03/2023 at 9:00:56 AM Final Phong Hickey MD - 10/03/[address], [address] [place] [address] TRANSTHORACIC ECHOCARDIOGRAM REPORT Patient Name: FER NEELY Reilly Physician: [id number] Phong Walker MD Study Date: 10/02/2023 Ordering Provider: [id number] GLADYS GONSALEZ MRN/PID: [id number] Fellow: Nurse: Date of /Age: 10 2000 / 23 years Jet Blade Polisher: Martita Gould RDCS, RVT Gender: F Additional Staff: Height: 167.64 cm Admit Date: Weight: 118.39 kg Admission Status: BSA: 2.24 m2 Department Location: [facility] Blood Pressure: 168 /96 mmHg Study Type: TRANSTHORACIC ECHO (TTE) COMPLETE Diagnosis/ICD: Palpitations-R00.2; Shortness of breath-R06.02; Abnormal electrocardiogram [ECG] [EKG]-R94.31 Indication: Sinus Tachycardia, Morbid Obesity, Elevated BP Reading CPT Codes: Echo Complete w Full Doppler-[id number] Study Detail: The following Echo studies were [...] 1.0 m/s (0.6-0.9m/s) PV Max P.4 mmHg [id number] Walker MD Electronically signed on 10/03/2023 at 9:00:56 AM Final [facility] Work Phone: TRANSTHORACIC ECHO (TTE) COM PLETEon 10-02-2023 TRANSTHORACIC ECHO (TTE) COMPLETE [address], [place] [address] TRANSTHORACIC ECHOCARDIOGRAM REPORT Patient Name: FER NEELY Reilly Physician: [id number] Walker MD Study Date: 10/02/2023 Ordering Provider: [id number] GLADYS GONSALEZ MRN/PID: [id number] Fellow: Nurse: Date of /Age: 10 2000 / years Jet Blade Polisher: Martita Gould RDCS, RVT Gender: F Additional Staff: Height: 167.64 cm Admit Date: Weight: 118.39 kg Admission Status: BSA: 2.24 m2 Department Location: [facility] Blood Pressure: 168 /96 mmHg Study Type: TRANSTHORACIC ECHO (TTE) COMPLETE Diagnosis/ICD: Palpitations-R00.2; Shortness of breath-R06.02; Abnormal electrocardiogram [ECG] [EKG]-R94.31 Indication: Sinus Tachycardia, Morbid Obesity, Elevated BP Reading CPT Codes: Echo Complete w Full Doppler-[id number] Study Detail: The following Echo studies were [...] 1.0 m/s (0.6-0.9m/s) PV Max P.4 mmHg [id number] Phong Walker MD Electronically signed on 10/03/2023 at 9:00:[address] [facility] Tobacco Screening.on 023 Adult depression screening assessment No [facility] [address] DO Work Phone: Fall risk assessment a) No falls within the last year [facility] [address] [address] DO Work Phone: Tobacco use status [facility] b) No [facility] [address] DO Work Phone: PAP ACOG PANEL 2: 21 to 29on 01-05-2023 . . Normal [facility] Comment on above: Performed By: [id number] #### [facility] [address] [place] [address] Dr. Andrews Zepeda Age Gdln ACOG Testing 21-29 [facility] Comment on above: Performed By: [id number] #### [facility] [facility] [address] [place] [address] Dr. Andrews Zepeda DIAGNOSIS: Comment [facility] Comment on above: Result Comment: NEGA TIVE FOR INTRAEPITHELIAL LESION OR MALIGNANCY. Performed By: #### [id number] #### [facility] [address] [place] [address] Dr. Andrews Zepeda Methodology: Comment [facility] Comment on above: Result Comment: This liquid based ThinPrep(R) pap test was screened with the use of an image guided system. Performed By: #### 4 [id number] #### [facility] [address] [place] [address] Dr. Andrews Zepeda Note: Comment [facility] Comment on above: Result Comment: The Pap smear is a screening test designed to aid in the detection of premalignant and malignant conditions of the uterine cervix. It is not a diagnostic procedure and should not be used as the sole means of detecting cervical cancer. Both false-positive and false-negative reports do occur. . Performed By: #### [id number] #### [facility] [address] [place] [address] Dr. Andrews Zepeda Performed by: Comment [facility] Comment on above: Result Comment: Waylon Raza, Gas Appliance Mechanic (ASCP) Performed By: #### 4 [id number] #### [facility] [address] [place] [address] Dr. Andrews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 Start: 07-09-2023 End: 07-09-2023 ambulatory Shawna Camacho Other [employer] Other Start: 07-09-2023 Office outpatient vi sit 25 minutes Shawna Camacho [facility] Start: 07-09-2023 Telephone encounter Shawna Camacho [facility] Start: 12-31-2022 End: 12-31-[address] NIKOLAY MCCONNELL Facility: Start: 12-06-2022 End: 12-07-[address] GARDINER LISTED REQUEST Facility:[facility] Start: 02-19-2022 End: 02-20-[address] SHAWNA CAMACHO Facility: Start: 02-19-2022 Gynecological examination normal Shawna Camacho Other [employer] Other Start: 02-19-2022 Well child visit Shawna Camacho Other [employer] Other Start: 08-08-2017 Emergency department patient visit Facility:[facility] Procedures Date Procedure Procedure Detail Performing Clinician Start: 10-02-2023 TRANSTHORACIC ECHO ( TTE) COMPLETE [...] 2) Zoste r Vaccines (1 of 2) [facility] Start: 03-05-2029 DTaP/Tdap/Td Vaccine s (8 - Td or Tdap) DTaP/Tdap/Td Vaccines (8 - Td or Tdap) [facility] Start: 03-05-2029 DTaP/Tdap/Td Vaccine s (9 - Td or Tdap) DTaP/Tdap/Td Vaccines (9 - Td or Tdap) [facility] Start: 10-11-2025 End: 10-11-2025 Patient encounter procedure 10/11/2025 2:00 PM EST Office Visit [facility] [address] [place] [address] [address] [place] [address] Gladys Gonsalez MD [address] [facility] [address] [place], [place] [id number] [facility] Start: 11-09-2024 End: 11-09-2024 Patient encounter procedure 11/09/2024 3:00 PM EST Office Visit [address] [place] [address] Gladys Gonsalez MD [address] [facility] [address] [place] [address] [facility] Start: 08-02-2024 COVID-19 Vaccine ( season) COVID-19 Vaccine ( season) [facility] Start: 04-13-2024 End: 04-13-2024 Patient encounter procedure 04/13/2024 3:30 PM EDT Office Visit [address] [place] [id number] Gladys Gonsalez MD [address] [facility] [address] [place] [address] [facility] Start: 02-03-2024 End: 02-03-2024 Patient encounter procedure 02/03/2024 4:00 PM EST Office Visit [facility] [address] [place] [address] Nikolay Mcconnell DO [address] [place] [address] [facility] Start: 10-14-2023 End: 10-14-2023 Patient encounter procedure 10/14/2023 3:00 PM EST Office Visit [address] [place] [phone] Gladys Gonsalez MD [address] [facility] [address] [place] [address] [facility] Start: 08-02-2023 COVID-19 Vaccine ( season) COVID-19 Vaccine ( season) [facility] Start: 01-04-2023 COVID-19 Vaccine (4 - Moderna series) COVID-19 Vaccine (4 - Moderna series) [facility] Start: 02-17-2022 HPV Vaccines (3 - 3- dose series) HPV Vaccines (3 - 3-dose series) [facility] Start: 2019 Screening for malign ant neoplasm of cervix [facility] Start: 2016 Diabetes mellitus screening Diabetes Screening [facility] Start: 2016 [facility] Start: 2011 Varicella vaccination Varicell a Vaccines (1 of 2 - 13+ 2-dose series) [facility] Start: 11-08-2009 Varicella vaccination Varicell a Vaccines (1 of 2 - 2-dose childhood series) [facility] Start: 2004 Pneumococcal Vaccine : Pediatrics (0 to 5 Years) and At-Risk Patients (6 to 64 Years) (1 of 2 - PCV) Pneumococcal Vaccine: Pediatrics (0 to 5 Years) and At-Risk Patients (6 to 64 Years) (1 of 2 - PCV) [facility] Start: 1998 HIV screening HIV Screening [facility] Start: 1998 Lipid panel Lipid Panel [facility] Start: 1998 Yearly Adult Physical Yearly Adult P [facility] Home sleep apnea martita t (HSAT) Home sleep apnea test (HSAT) Sleep Center Routine Shortness of breath Tiredness Sleep apnea, unspecified type Ordered: 10/14/2023 [facility] Service Area Work Phone: Comment on above: Ordered: 10/14/2023 End: 10-02-2023 US Heart Transthoracic [facility] Service Area Work Phone: Comment on above: Once for 1 Occurrenc es starting 10/02/2023 until 10/02/2023 Immunizations Immunization Date Immunization Notes Care Provider Fa chaparrita 09-02-2023 influenza, injectabl e, quadrivalent, preservative free Jessica 2 [facility] Work Phone: 11-09-2022 Pfizer COVID-19 Vac Bivalent 30 MCG/0.3ML Intramuscular Suspension Shawna Camacho Work Phone: [facility] 250 DO Work Phone: 09-19-2022 Influenza, injectabl e, [facility] [place] Canine Kidney, preservative free, quadrivalent Shawna E Camacho Work Phone: [facility] 250 DO Work Phone: 10-06-2021 Human Papillomavirus 9-valent vaccine Shawna E Camacho Work Phone: [facility] 250 DO Work Phone: 10-06-2021 HPV, unspecified formulation [address] Work Phone: 09-29-2021 Moderna COVID-19 Vac cine 100 MCG/0.5ML Intramuscular Suspension Shawna E Camacho Work Phone: [facility] 250 DO Work Phone: 08-20-2021 Human Papillomavirus 9-valent vaccine Shawna E Camacho Work Phone: [facility] 250 DO Work Phone: 08-20-2021 influenza, injectabl e, quadrivalent, preservative free Shawna E Camacho Work Phone: [facility] 250 DO Work Phone: 03-23-2021 Moderna COVID-19 Vac cine 100 MCG/0.5ML Intramuscular Suspension Shawna E Camacho Work Phone: [facility] 250 DO Work Phone: 02-22-2021 Moderna COVID-19 Vac cine 100 MCG/0.5ML Intramuscular Suspension Shawna E Camacho Work Phone: [facility] 250 DO Work Phone: 07-21-2019 influenza, injectabl e, quadrivalent, preservative free Shawna E Camacho Work Phone: [facility] 250 DO Work Phone: 03-05-2019 diphtheria, tetanus toxoids and acellular pertussis vaccine, unspecified formulation Shawna Camacho Other [facility] 03-05-2019 hepatitis A vaccine, adult dosage [facility] Work Phone: 03-05-2019 tetanus toxoid, redu kyle diphtheria toxoid, and acellular pertussis vaccine, adsorbed Shawna E Camacho Work Phone: [place] [address] DO Work Phone: 07-22-2018 influenza virus vacc ine, split virus (incl. purified surface antigen) Shawnaedmond Camacho Other [facility] [employer] Other 07-22-2018 influenza virus vacc ine, unspecified formulation [facility] 07-22-2018 influenza, injectabl e, quadrivalent, preservative free Shawna E Camacho Work Phone: [place] [address] DO Work Phone: 09-01-2017 influenza, injectabl e, quadrivalent, preservative free Shawna E Camacho Work Phone: [place] [address] DO Work Phone: 07-19-2016 meningococcal oligosaccharide (groups A, C, Y and W-135) diphtheria toxoid conjugate vaccine (MCV4O) Shawna Doug Other [facility] 07-19-2016 meningococcal polysaccharide (groups A, C, Y and W-135) diphtheria toxoid conjugate vaccine (MCV4P) Shawna Autumn Camacho Work Phone: [place] [address] DO Work Phone: 06-20-2016 hepatitis A vaccine, adult dosage Shawna Doug Other [facility] 08-07-2015 influenza, injectabl e, quadrivalent, preservative free Shawna E Camacho Work Phone: [place] [address] DO Work Phone: 10-13-2014 tetanus and diphther ia toxoids, adsorbed, preservative free, for adult use (5 Lf of tetanus toxoid and 2 Lf of diphtheria toxoid) Shawna Camacho Other [facility] 11-20-2011 influenza, seasonal, injectable Shawna Camacho [facility]: [facility] Work Phone: 06-19-2011 tetanus toxoid, redu kyle diphtheria toxoid, and acellular pertussis vaccine, adsorbed [facility] Camacho [facility] Work Phone: 10-11-2009 novel influenza-H1N1 -09, preservative-free, injectable Shawna Camacho [facility] Work Phone: 05-29-2004 diphtheria, tetanus toxoids and acellular pertussis vaccine, unspecified formulation Shawna Camacho Work Phone: [facility] [employer] DO Work Phone: 05-29-2004 measles, mumps and rubella virus vaccine Shawna Camacho Work Phone: [facility] [employer] DO Work Phone: 05-29-2004 poliovirus vaccine, inactivated Shawna Camacho Work Phone: [facility] [employer] DO Work Phone: 12-05-1999 diphtheria, tetanus toxoids and acellular pertussis vaccine, unspecified formulation Shawna Camacho Work Phone: [facility] [employer] DO Work Phone: 12-05-1999 haemophilus influenz ae type b vaccine, HbOC conjugate Shawna Camacho Work Phone: [facility] [employer] DO Work Phone: 12-05-1999 measles, mumps and rubella virus vaccine Shawna Tripp Camacho Work Phone: [place] [address] DO Work Phone: 12-05-1999 trivalent poliovirus vaccine, live, oral Shawna Tripp Camacho Work Phone: [place] [address] DO Work Phone: 05-31-1999 diphtheria, tetanus toxoids and acellular pertussis vaccine, unspecified formulation Shawna Tripp Camacho Work Phone: [place] [address] DO Work Phone: 05-31-1999 haemophilus influenz ae type b conjugate and Hepatitis B vaccine Shawna E Camacho Work Phone: [place] [address] DO Work Phone: 03-01-1999 diphtheria, tetanus toxoids and acellular pertussis vaccine, unspecified formulation Shawna Tripp Camacho Work Phone: [place] [address] DO Work Phone: 03-01-1999 haemophilus influenz ae type b vaccine, HbOC conjugate Shawna Tripp Camacho Work Phone: [place] [address] DO Work Phone: 03-01-1999 poliovirus vaccine, inactivated Shawna E Camacho Work Phone: [place] [address] DO Work Phone: 1998 diphtheria, tetanus toxoids and acellular pertussis vaccine, unspecified formulation Shawna Tripp Camacho Work Phone: [place] [address] DO Work Phone: 1998 haemophilus influenz ae type b conjugate and Hepatitis B vaccine Shawna E Camacho Work Phone: [place] [address] DO Work Phone: 1998 poliovirus vaccine, inactivated Shawna E Camacho Work Phone: [facility] 250 DO Work Phone: 1998 hepatitis B vaccine, pediatric or pediatric/adolescent dosage Shawna Camacho [facility] Work Phone: 1998 hepatitis B vaccine, pediatric or pediatric/adolescent dosage Shawna Camacho Work Phone: [facility] 250 DO Work Phone: Payers Date Payer Category Payer Managed Care (Private) [facility] Member Subscriber Plan / Payer (Effective 2024-Present) Name: Fer Neely Relation to Subscriber: Self Name: Fer Neely Payer ID: Not on file Type: Not on file Address: [place] [id number] 2024 Unknown [id number] 2020 Unknown 2015 Private Health Insurance [id number] 1998 Unknown [id number] 1998 Unknown [id number] 1998 Unknown [id number] 1998 Unknown [id number] 1998 Unknown [id number] 1998 Unknown [id number] 1998 Unknown [id number] 1959 Self-pay 1959 Unknown [id number] Unknown [id number] Social History Date Type Detail Facility Unknown if ever smoked [facility] [employer] Other Start: 10-14-2023 End: 11-09-2024 Sex Assigned At [facility] [employer] Other Start: 10-14-2023 End: 11-09-2024 No illicit drug use No illicit drug use -Merged With [facility] 250 DO Work Phone: Tobacco smoking status NHIS Tobacco smoking consumption unknown [facility] Work Phone: Start: 1998 [facility]: Start: 09-22-2023 End: 05-27-2024 Exposure to SARS-CoV-2 (event) Not sure [facility] Start: 10-14-2023 End: 01-13-2024 Tobacco smoking status NHIS Never smoked tobacco [facility] Start: 10-14-2023 Tobacco use and exposure Smokeless tobacco non-user [facility] Work Phone: Start: 10-14-2023 End: 05-27-2024 Alcohol intake Lifetime non-drinker (finding) [facility] Work Phone: Start: 01-13-2024 Alcohol intake Current drinke r of alcohol (finding) [facility] Start: 01-13-2024 Alcohol Comment caffeine: 2-3 cups per day [facility] Start: 1998 Sex Assigned At Female F [facility] Clinical Notes 07-09-2023 to 11-09-2024 Gladys Gonsalez MD - 11/09/2024 3:00 PM ESTPatient InstructionsSarwat Magaña APRN-GODWIN - 05/27/2024 3:00 PM EDTPatient Instructions Note Date & Type Note Facility 11-09-2024 History of Present illness Narrative 1 year follow-up visit. Subjective : Reports feeling well. Mild sleep apnea on home sleep study test, could not tolerate CPAP therapy She has lost more than 60 pounds with SGL T2 inhibitor, at that point she started losing hair, and the medicine was discontinued. Interval review of systems is negative for chest discomfort pressure tightness heaviness palpitations lightheadedness orthopnea paroxysmal nocturnal dyspnea dependent edema or claudication TIA or CVA type symptoms or bleeding diathesis frequently forgets to take the second dose of acebutolol, she says she sleeps better when she takes acebutolol in the evening. History so Far : 1. Palpitations 2. [...] Objective Wt Readings from Last 3 Encounters: 11/09/24 98.9 kg (218 lb) 05/27/24 93.5 kg (206 lb 3.2 oz) 10/14/23 119 kg (262 lb) Vitals: 11/09/24 1516 BP: 106/60 BP Location: Right arm Patient Position: Sitting Pulse: 84 Weight: 98.9 kg (218 lb) Height: 1.676 m (5' 6 ) Physical Exam: GENERAL APPEARANCE: in no acute [...] (Proventil HFA) 90 mcg/actuation inhaler 1 puff, Every 4 hours PRN omeprazole (PRILOSEC) 20 mg, Daily spironolactone (ALDACTONE) 25 mg, oral, Daily No Known Allergies LABS: July 2024-sodium 139 potassium 4.1 BUN 12 creatinine 0.November-hemoglobin 13.4 hematocrit 42 sodium 139 potassium 4.1 BUN 12 creatinine 0.85 GFR greater than 60 liver enzymes normal LDL cholesterol 119 HDL cholesterol 55 TSH 1.77 Patient Active Problem List Diagnosis Date Noted Essential hypertension 11/09/2024 Never smoked cigarettes 11/09/2024 LOIDA (obstructive sleep apnea) 11/09/2024 Body mass index (BMI) 35.0-35.9, adult 05/27/2024 Encounter to discuss test results 10/14/2023 Tiredness 10/14/2023 Abnormal EKG 10/01/2023 Elevated blood pressure reading 10/01/2023 Morbid obesity with BMI of 40.0-44.9, adult (Multi) 10/01/2023 Palpitations 10/01/2023 Shortness of breath 10/01/2023 Sinus tachycardia 10/01/2023 Assessment: 1. Palpitations Follow Up In Cardiology spironolactone (Aldactone) 25 mg tablet acebutolol (Sectral) 200 mg capsule 2. Tiredness 3. Essential hypertension Follow Up In Cardiology 4. Body mass index (BMI) 35.0-35.9, adult 5. Never smoked cigarettes 6. LOIDA (obstructive sleep apnea) 7. Sinus tachycardia spironolactone (Aldactone) 25 mg tablet acebutolol (Sectral) 200 mg capsule Patient is doing well. She does not complain of palpitations or undue fatigue, and she is not complaining of shortness of breath. When seen by Sarwat Magaña NP at last visit, acebutolol was reduced to 200 mg daily with goal of discontinuing it/weaning it off. She says she felt better when she was on twice daily acebutolol, she is allowed to increase the dose to 200 mg p.o. twice daily. She will continue her efforts at weight loss. I suggested that she talk to Dr. Camacho about metformin for reducing insulin resistance and help with weight loss. Follow up : 1 year Provider Attestation - Idalia House LPN Scribe documentation All medical record entries made by the Scribe were at my direction and personally dictated by me. I have reviewed the chart and agree that the record accurately reflects my personal performance of the history, physical exam, discussion and plan. documented in this encounter [facility] Work Phone: 11-09-2024 Instructions Idalia Tinsley LPN - 11/09/2024 3:00 PM EST Please bring all medicines, vitamins, and herbal supplements with you when you come to the office. Prescriptions will not be filled unless you are compliant with your follow up appointments or have a follow up appointment scheduled as per instruction of your physician. Refills should be requested at the time of your visit. BMI was above normal measurement. Current weight: 98.9 kg (218 lb) Weight change since last visit (-) denotes wt loss 11.8 lbs Weight loss needed to achieve BMI 25: 63.4 Lbs Weight loss needed to achieve BMI 30: 32.5 Lbs Provided instructions on dietary changes Provided instructions on exercise. documented in this encounter [facility] Work Phone: 05-27-2024 History of Present illness Narrative Chief Complaint I am doing really good Reason for Visit 6-month follow-up. Patient presents to the office today for outpatient follow-up for palpitations. Last evaluated in clinic by Dr. Gonsalez October 2023. At that time, she was seen in consultation due to palpitations. Initiated on acebutolol 200 mg twice daily and spironolactone. Subsequent testing: October 2023 TTE LVEF 65% with structurally normal heart October 2023 Holter monitor normal sinus rhythm She then had a home sleep study and was referred for in lab testing, currently has a CPAP machine but is having difficulty with fitting. Presents today ambulatory with steady gait. Accompanied by patient Patient denies any hospitalizations or significant changes to interval medical history since last office follow-up. Patient reports following annually with PCP with lab work. History of Present Illness Patient is an extremely pleasant 23-year-old who presents to the office today where she has lost 60 pounds. She has started walking greater than 1 mile on a daily basis and is doing so much better . She is having difficulty with twice daily dosing of acebutolol and is probably missing the afternoon dose 5 times a week. She reports her acne and hirsutism have significantly improved on Aldactone. In regards to palpitations they have abated with weight loss and conditioning and once daily dose of acebutolol. Ambulated in from the parking lot today and even took the stairs up to the office without any type of complaints. Discussed the possibility of weaning off of acebutolol as she continues to increase activity and become more cardiovascular conditioned. Her plan is to continue to increase her exercise program and obtain goal weight by 6-month follow-up with Dr. Gonsalez; will discuss discontinuing at that time. Her preference would be to continue to Aldactone. Patient reports that overall has no complaint(s) of chest pain, chest pressure/discomfort, claudication, dyspnea, exertional chest pressure/discomfort, fatigue, irregular heart beat, and lower extremity edema WOCBP: was previously on control Daily activity: Greater than 1 mile walking on a daily basis Reports significant improvement in exercise capacity or functional tolerance since last office visit. Review of Systems Cardiovascular: Negative for chest pain, dyspnea on exertion, irregular heartbeat, leg swelling, near-syncope, orthopnea, palpitations, paroxysmal nocturnal dyspnea and syncope. Visit Vitals BP 102/70 (BP Location: Right arm, Patient Position: Lying) Pulse 84 Ht 1.676 m (5' 6 ) Wt 93.5 kg (206 lb 3.2 oz) BMI 33.28 kg/m Smoking Status Never BSA 2.09 m Physical Exam Vitals and nursing note reviewed. HENT: Head: Normocephalic. Cardiovascular: Rate and Rhythm: Normal rate and regular rhythm. Heart sounds: Normal heart sounds. Pulmonary: Effort: Pulmonary effort is normal. Breath sounds: Normal breath sounds. Abdominal: Palpations: Abdomen is soft. Musculoskeletal: Right lower leg: No edema. Left lower leg: No edema. Skin: General: Skin is warm and dry. Neurological: General: No focal deficit present. Mental Status: She is alert. Psychiatric: Mood and Affect: Mood normal. Behavior: Behavior normal. No Known Allergies Current Outpatient Medications Medication Instructions acebutolol (SECTRAL) 200 mg, oral, Daily albuterol (Proventil HFA) 90 mcg/actuation inhaler 1 puff, inhalation, Every 4 hours PRN Mounjaro 2.5 mg, subcutaneous, Once Weekly omeprazole (PRILOSEC) 20 mg, oral, Daily, Do not crush or chew. spironolactone (ALDACTONE) 25 mg, oral, Daily Assessment: Patient presents to the office today with significant improvement in palpitations and overall quality of life with lifestyle changes and weight loss of 60 pounds. She is missing the afternoon dose of acebutolol approximately 5 times a week and will therefore continue on a daily basis. Will need to obtain recent labs to check potassium due to spironolactone. Overall, is maintaining stability with favorable echocardiogram and Holter monitor October 2023. No indication for ischemic workup. Plan: Through informed decision making process incorporating patients unique circumstances, the following treatment plan will be initiated: 1. Prescription drug management of cardiovascular medication for efficacy, adherence to treatment, side effect assessment and polypharmacy. Current treatment clinically warranted and to continue with following modifications: - Reduce acebutolol 200mg daily 2. Return for follow-up; in the interim, contact the office if new symptoms arise. Dr. Gonsalez 6 months Sarwat Magaña MSN, TREE WORKER-CNA INSTRUCTOR, PMHNP-[facility] Please excuse any errors in grammar or translation related to this dictation. Voice recognition software was utilized to prepare this document. documented in this encounter [facility] Work Phone: 05-27-2024 Instructions DANNY Wu - 05/27/2024 3:00 PM EDT Please bring all medicines, vitamins, and herbal supplements with you when you come to the office. Prescriptions will not be filled unless you are compliant with your follow up appointments or have a follow up appointment scheduled as per instruction of your physician. Refills should be requested at the time of your visit. PLAN: Through informed decision making process incorporating patients unique circumstances, the following treatment plan will be initiated: 1. Prescription drug management of cardiovascular medication for efficacy, adherence to treatment, side effect assessment and polypharmacy. Current treatment clinically warranted and to continue with following modifications: - Reduce acebutolol 200mg daily 2. Return for follow-up; in the interim, contact the office if new symptoms arise. Dr. Gonsalez 6 months documented in this encounter [facility] Work Phone: 01-02-2024 Evaluation note Encounter Date Diagnosis Assessment Notes Jan, LOIDA (obstruct marcelina sleep apnea) (ICD-10 - G47.33) 1 diagnostic sleep study faxed to [facility] patient requested follow-up there. 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 [employer] Other 02-01-2024 Evaluation note* Encounter Date Diagnosis Assessment Notes Treatment Notes Treatment Clinical Notes Jan, LOIDA (obstructive sleep apnea) (ICD-10 - G47.33) diagnostic sleep study done at [facility] was faxed to [facility] patient requested follow-up there. 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 Her symptoms include snoring, fatigue, and headaches. Her Toxicologist initiated this testing and now we can follow through on further testing. [employer] Other [id number] History of Present illness Narrative* Gladys Gonsalez [...] Morbid obesity with BMI of 40.0-44.9, adult ([facility]) 10/01/2023 Palpitations 10/01/2023 Shortness of breath 10/01/2023 [...] months Gladys Gonsalez MD [facility] Phone: 1(317) 911-827011-13-2023 Instructions* Patient Instructions* Deyvi Malhotra MA - [...] time of your visit. [facility] Phone: 1(515) 293-756308-08-2023 Evaluation note* Encounter Date Diagnosis Assessment Notes [...] OTC Supplement. It was 21 in December. [employer] Other Chief complaint Narrative - ReportedEMTAYE NEELY is being seen for an initial evaluation of tachycardia.[facility] [address] DO Work Phone: Evaluation noteNo InformationNothe rehabilitation institute [employer] Other Evaluation note* Diagnosis Palpitations Shortness of breath Abnormal EKG Nonspecific abnormal electrocardiogram (ECG) (EKG) documented in this encounter [facility] Work Phone: Evaluation note* Diagnosis Palpitations- Primary Encounter to discuss test results Other specified counseling Abnormal EKG Nonspecific abnormal electrocardiogram (ECG) (EKG) Elevated blood pressure reading Elevated blood pressure reading without diagnosis of hypertension Sinus tachycardia Other specified cardiac dysrhythmias Morbid obesity with BMI of 40.0-44.9, adult (CMS/HCC) Shortness of breath Tiredness Other malaise and fatigue Sleep apnea, unspecified type documented in this encounter [facility] Work Phone: Evaluation noteNo assessment information [facility] Work Phone: Evaluation note* Diagnosis Palpitations Tiredness Other malaise and fatigue Essential hypertension Unspecified essential hypertension Body mass index (BMI) 35.0-35.9, adult Never smoked cigarettes LOIDA (obstructive sleep apnea) Obstructive sleep apnea (adult) (pediatric) Sinus tachycardia Other specified cardiac dysrhythmias documented in this encounter [facility] Work Phone: Evaluation note* Diagnosis BMI 33.0-33.9,adult- Primary Palpitations Sinus tachycardia Other specified cardiac dysrhythmias Shortness of breath documented in this encounter [facility] Work Phone: History general Narrative - Reported* Type Description Date Medical History Endocrine disorder, unspecified Medical History Secondary amenorrhea Medical History PCOS Medical History Asthma Surgical History WISDOM TEETH EXTRACTION 2016 Hospitalization History SEE SURGICAL HX [employer] Other History general Narrative - Reported* Type Description Date Medical History Endocrine disorder, unspecified Medical History Secondary amenorrhea Medical History PCOS Medical History Asthma Medical History Hypertension Surgical History WISDOM TEETH EXTRACTION 2016 Hospitalization History SEE SURGICAL HX [employer] Other History of Present illness Narrative* 22-year-old is being seen in cardiology consultation regarding palpitations, fatigue, shortness of breath. * Has morbid obesity * No prior history of hypertension or diabetes * Remains on metformin, and has been on Adipex on and off, EDGER LINER managing, patient reports that the metformin does improve her weight but the Adipex she is not so sure about it. 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 * She has been trying several methods [...] arise, * Sincerely, * Gladys Gonsalez MD [facility] 250 DO Work Phone: Reason for referral (narrative)* Consultation (Routine) - Authorized Specialty Diagnoses / Procedures Referred By Contac t Referred To Contact Cardiology Diagnoses Palpitations Sinus tachycardia Shortness of breath Procedures Follow Up In Cardiology Gladys Gonsalez MD [address] [facility] [address] [place] [address] Gladys Gonsalez MD [address] [facility] [address] [place] [address] Referral ID Status Reason Start Date Expiration Date V isits Requested Visits Authorized [id number] Authorized 10/14/2023 10/13/2024 1 1 * Sleep - Outpatient (Routine) - Pending Review Specialty Diagnoses / Procedures Referred By Jesus Alberto tobias Referred To Contact Sleep Lab Diagnoses Shortness of breath Tiredness Sleep apnea, unspecified type Procedures Home sleep apnea test (HSAT) Gladys Gonsalez MD [address] [facility] [address] [place] [address] Referral ID Status Reason Start Date Expiration Date V isits Requested Visits Authorized [id number] Pending Review 10/14/2023 10/13/2024 1 1 [facility] Work Phone: [employer] for referral (narrative)* Consultation (Routine) - Authorized Specialty Diagnoses / Procedures Referred By Contdiego t Referred To Contact Cardiology Diagnoses Palpitations Procedures Follow Up In Cardiology Sarwat Magaña, TREE WORKER-CNA INSTRUCTOR [address] [facility] [address], [address] [place] [address] Gladys Gonsalez MD [address] [facility] [address] [place] [address] Referral ID Status Reason Start Date Expiration Date V isits Requested Visits Authorized [id number] Authorized 05/27/2024 05/27/2025 1 1 [facility] Work Phone: Summary Purpose Family History No Family History Records FoundUnknown Family Member Name Dates Details Family history of cardiomyop athy: Mother(V17.49, Z82.49) Status:Active Type 2 diabetes mellitus wit h other circulatory complication: Mother Status:Active No pertinent family history: Father(V49.89, Z78.9) Status:Active Relationship Condition Age at Onset Recorded Date/T mine grandparent Hypertension Unknown grandparent Unknown Hypertension Unknown Malignant neoplasm Unknown mother Heart disease Unknown Advance Directives No Advanced Directives Records Found Advance Directive Response Recorded Date/ Time Advance Directives No April 09, 2024 11:42am Reason for Referral Reason Elevated resting hea rt rate. Diagnosis 1 Tachycardia (R00.0) Referral Organization [facility] yvonne Referring Provider First Name Shawna Referring Provider Last Name Doug Referring Provider Specialty [facility] Referred Organization [facility] enter Referred Address [address] [place] [address] Referred Provider Specialty Cardiology Referral Priority Routine Specialty Diagnoses / Procedures Referred By Jesus Alberto tobias Referred To Contact Cardiology Diagnoses Palpitations Shortness of breath Abnormal EKG Procedures Transthoracic Echo (TTE) Complete MN ECHO TRANSTHORC R-T 2D W/WO M-MODE REC F-UP/LMTD MN DOP ECHOCARD COLOR FLOW VELOCITY MAPPING MN DOP ECHOCARD PULSE WAVE W/SPECTRAL F-UP/LMTD STD Gladys Gonsalez MD [address] [facility] [address] [place] [address] Referral ID Status Reason Start Date Expiration Date Visits Requested Visits Authorized [id number] Authorized Perform Procedure 08/26/2023 02/22/2024 1 1 Chief Complaint and Reason for Visit Chief Complaint medical statement fo r work Additional Source Comments INFORMATION SOURCE (unrecogn ized section and content) DATE CREATED AUTHOR 05/28/2018 [facility] [place] DATE CREATED AUTHOR AUTHOR'S ORGANIZ ATION 07/12/2020 Malave Moore [facility] ical Center DATE CREATED AUTHOR AUTHOR'S ORGANIZ ATION 04/10/2022 [facility] Me dical Specialist DATE CREATED AUTHOR AUTHOR'S ORGANIZ ATION 01/05/2023 [facility] DATE CREATED AUTHOR AUTHOR'S ORGANIZ ATION 07/11/2023 [facility] ical Center DATE CREATED AUTHOR AUTHOR'S ORGANIZ ATION 02/04/[address] [facility] dical Specialists EPIC DATE CREATED AUTHOR AUTHOR'S ORGANIZ ATION 07/15/2024 [facility] DATE CREATED AUTHOR AUTHOR'S ORGANIZ ATION 02/05/2025 [facility] Ambulatory REASON FOR VISIT (unrecogniz ed section and content) Specialty Diagnoses / Procedures Referred By Jesus Alberto tobias Referred To Contact Cardiology Diagnoses Palpitations Shortness of breath Abnormal EKG Procedures Transthoracic Echo (TTE) Complete [place] ECHO TRANSTHORC R-T 2D W/WO M-MODE REC F-UP/LMTD MN DOP ECHOCARD COLOR FLOW VELOCITY MAPPING MN DOP ECHOCARD PULSE WAVE W/SPECTRAL F-UP/LMTD STD Gladys Gonsalez MD [address] [facility] [address] [place] [address] Referral ID Status Reason Start Date Expiration Date Visits Requested Visits Authorized [id number] Authorized Perform Procedure 08/26/2023 02/22/2024 1 1 Reason Comments Follow-up Holter/echo results Reason Comments Follow-up 6m Specialty Diagnoses / Procedures Referred By Jesus Alberto tobias Referred To Contact Cardiology Diagnoses Palpitations Procedures Follow Up In Cardiology Sarwat Magaña, TREE WORKER-CNA INSTRUCTOR [address] [facility] [address], [facility] [address] [place] [address] Phone: tel: fax: Gladys Gonsalez MD [address] [place] [address] [address] [place] [address] Phone: tel: fax: Referral ID Status Reason Start Date Expiration Date V isits Requested Visits Authorized [id number] Authorized 05/27/2024 05/27/2025 1 1 Reason Comments Follow-up 6 month Specialty Diagnoses / Procedures Referred By Contac t Referred To Contact Cardiology Diagnoses Palpitations Sinus tachycardia Shortness of breath Procedures Follow Up In Cardiology Gladys Gonsalez MD [address] [address] Gladys Gonsalez MD [address] [address] Referral ID Status Reason Start Date Expiration Date V isits Requested Visits Authorized [id number] Authorized 10/14/2023 10/13/2024 1 1 Care Teams (unrecognized sec tion and content) Gravity Meter Operator Relationship Specialty Start Date End Date Shawna Camacho MD [address] [place] [id number] PCP - General 07/10/23 Gravity Meter Operator Relationship Specialty Start Date End Date Shawna Camacho MD [address] [place] [id number] PCP - General 07/10/23 Gravity Meter Operator Relationship Specialty Start Date End Date Shawna Camacho MD PCP - General 07/10/23 Team Status: Active Member Role Status Dates Shawna Camacho MD Primary Care Provider Active Team Status: Active Member Role Status Dates Shawna Camacho MD Primary Care Provide r, Attending Provider Active Start: July 17, 2024 Team Status: Inactive Member Role Status Dates Shawna Camacho MD Primary Care Provide r, Attending Provider Active Start: July 30, 2024 End: July 30, 2024 Gravity Meter Operator Relationship Specialty Start Date End Date Shawna Camacho MD [address] [place] [id number] PCP - General 07/10/23 Gravity Meter Operator Relationship Specialty Start Date End Date Shawna Camacho MD [address] [place] [id number] PCP - General 07/10/23 Goals (unrecognized section and content) Goals may be documented in a n alternate section FOR RECORDS PERTAINING TO PATIENTS WHO ARE [...] BE BASED ON THE PRIMARY CLINICAL RECORDS. [facility] [employer] provides no warranty or guarantee of the accuracy or completeness of information in this document.
[2025-02-19 12:08] LABS: Age Gdln ACOG Testing Note (.); IGP, rfx Aptima HPV ASCU Note (.)
== END 2025-02-15 20:33 | disposition home or self-care (01) ==
LOC: LAB 20:32
PROVIDERS: PCP Family Medicine; Visit Provider Obstetrics & Gynecology
DX: Z01.419 Encounter for gynecological examination (general) (routine) without abnormal findings (principal)
CPT/HCPCS: 88175